=== PATIENT | female | born 1950 | race African-American/Black ===

== ENCOUNTER 2017-06-27 20:35 | Inpatient (IN) | payer MEDICARE, BC ==
[~2017-06-27] VITALS: Ht 160 cm; Wt 45.8 kg
[2017-06-27] MEDS ORDERED: LORazepam Inj 2mg/ml 1ml IV ONE (21:00)
[2017-06-27 21:36] LABS: BASOPHILS % (AUTO) 2.1 % (0.0-2.0); EOSINOPHILS % (AUTO) 5.3 % (0.0-3.0); HEMATOCRIT 37.7 % (37.0-47.0); HEMOGLOBIN 12.2 G/DL (12.0-16.0); LYMPHOCYTES % (AUTO) 43.2 % (20.0-45.0); MEAN CORPUSCULAR VOLUME 94 FL (80-99); MONOCYTES % (AUTO) 9.4 % (1.0-10.0); NEUTROPHILS % (AUTO) 40.1 % (45.0-75.0); PLATELET COUNT 275 K/UL (150-450); RED BLOOD COUNT 4.03 M/UL (4.20-5.40); RED CELL DISTRIBUTION WIDTH 13.4 % (11.6-14.8); WHITE BLOOD COUNT 5.1 K/UL (4.8-10.8)
[2017-06-27 21:56] LABS: ANION GAP 3 mmol/L (5-15); BLOOD UREA NITROGEN 21 mg/dL (7-18); CALCIUM 8.7 MG/DL (8.5-10.1); CARBON DIOXIDE 31 MMOL/L (21-32); CHLORIDE 104 MMOL/L (98-107); CREATININE 0.7 MG/DL (0.55-1.30); POTASSIUM 4.7 MMOL/L (3.5-5.1); SODIUM 138 MMOL/L (136-145)
[2017-06-27 22:01] LABS: ALANINE AMINOTRANSFERASE 10 U/L (12-78); ALBUMIN 2.9 G/DL (3.4-5.0); ALBUMIN/GLOBULIN RATIO 0.8 (1.0-2.7); ALKALINE PHOSPHATASE 111 U/L (46-116); ASPARTATE AMINO TRANSFERASE 18 U/L (15-37); BILIRUBIN,TOTAL 0.2 MG/DL (0.2-1.0); CREATINE KINASE 82 U/L (26-308)
[2017-06-27 22:08] LABS: APPEARANCE,URINE SLIGHTLY CLOUDY; BILIRUBIN, URINE NEGATIVE (NEGATIVE); COLOR,URINE PALE YELLOW; GLUCOSE, URINE (UA) NEGATIVE (NEGATIVE); KETONES,URINE NEGATIVE (NEGATIVE); LEUKOCYTE ESTERASE ,URINE 3+ (NEGATIVE); NITRITE,URINE NEGATIVE (NEGATIVE); PH,URINE 6.5 (4.5-8.0); PROTEIN,URINE 1+ (NEGATIVE); UROBILINOGEN,URINE NORMAL MG/DL (0.0-1.0)
[2017-06-27] MEDS ORDERED: SINEMET 25-1001 EAC1 ORAL (22:26)
[2017-06-27 22:30] VITALS: BP 89/54
--- NOTE | 2017-06-27 23:46 | Emergency Room Report ---
History of Present Illness General Chief Complaint: Chest Pain Source: Patient, EMS Present Illness HPI Patient presents with chest pain. Has been for 4 hours. She has uncontrolled tremors of her arms. They have been jerking violently for several hours. There was a recent change in her medications. She reports the pain in her chest as sternal and to the left. She does not ambulate, so not exertional ( though arms have been celso). More in chest wall and radiating to side on L. No fevers, URI, cough, dyspnea, NVD, diaphoresis, headache, LOC, abdominal pain , change in bowels, dysuria. The nature of the jerking has not been diagnosed. Allergies: Coded Allergies: No Known Allergies (Unverified , 06/27/17) Patient History Past Medical History: see triage record Past Surgical History: other - back surgery Social History: Denies: smoking Social History Narrative SNF Last Menstrual Period: NA Reviewed Nursing Documentation: PMH: Agreed, PSxH: Agreed Nursing Documentation-PMH Hx Hypertension: Yes Hx Asthma: Yes Review of Systems All Other Systems: negative except mentioned in HPI Physical Exam Vital Signs Date Time Temp Pulse Resp B/P (MAP) Pulse Ox O2 Delivery O2 Flow Rate FiO2 06/27/17 20:35 97.5 85 18 146/81 98 Room Air Sp02 EP Interpretation: reviewed, normal General Appearance: no apparent distress, GCS 15, other - arms jerking violently, Chronically Ill Head: normocephalic Eyes: bilateral eye normal inspection, bilateral eye PERRL ENT: moist mucus membranes Neck: supple Respiratory: lungs clear, normal breath sounds Cardiovascular #1: regular rate, rhythm Cardiovascular #2: 2+ radial (R) Gastrointestinal: normal inspection, normal bowel sounds, non tender, no mass, non-distended Musculoskeletal: back normal, normal range of motion 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, oriented x3, motor strength/tone normal - with cheoform jerking of arms, DTRs symmetric, sensory intact, speech normal Psychiatric: mood/affect normal Skin: normal inspection, warm/dry Medical Decision Making Diagnostic Impression: Primary Impression: Chest pain Qualified Codes: R07.9 - Chest pain, unspecified Additional Impressions: Violent uncontrolled choreoform tremors Pyuria ER Course Patient presents with chest pain and uncontrolled arm jerking. Ddx: chorea, Parkinson's, ACS, AMI, chest strain, rhabdomyolysis amongst others. Patient will be evaluated with EKG, CXR and labs. Focus on control of jerking. Non- focality of neurologic exam precludes need for CT at this time. Initial EKG with tremor. Ativan given and second EKG taken. CXR clear. Labs with normal CBC and CMP. UA late return with pyuria. Due to possibly having underlying coronary artery disease the patient admitted for observation and repeat troponins. In addition to that evaluation and treatment of the uncontrolled tremors will be undertaken. Laboratory Tests Test 06/27/17 21:15 06/27/17 21:45 White Blood Count 5.1 K/UL (4.8-10.8) Red Blood Count 4.03 M/UL (4.20-5.40) L Hemoglobin 12.2 G/DL (12.0-16.0) Hematocrit 37.7 % (37.0-47.0) Mean Corpuscular Volume 94 FL (80-99) Mean Corpuscular Hemoglobin 30.3 PG (27.0-31.0) Mean Corpuscular Hemoglobin Concent 32.4 G/DL (32.0-36.0) Red Cell Distribution Width 13.4 % (11.6-14.8) Platelet Count 275 K/UL (150-450) Mean Platelet Volume 6.5 FL (6.5-10.1) Neutrophils (%) (Auto) 40.1 % (45.0-75.0) L Lymphocytes (%) (Auto) 43.2 % (20.0-45.0) Monocytes (%) (Auto) 9.4 % (1.0-10.0) Eosinophils (%) (Auto) 5.3 % (0.0-3.0) H Basophils (%) (Auto) 2.1 % (0.0-2.0) H Prothrombin Time 10.9 SEC (9.30-11.50) Prothrombin Time INR 1.0 (0.9-1.1) PTT 21 SEC (23-33) L Sodium Level 138 MMOL/L (136-145) Potassium Level 4.7 MMOL/L (3.5-5.1) Chloride Level 104 MMOL/L (98-107) Carbon Dioxide Level 31 MMOL/L (21-32) Anion Gap 3 mmol/L (5-15) L Blood Urea Nitrogen 21 mg/dL (7-18) H Creatinine 0.7 MG/DL (0.55-1.30) Estimate Glomerular Filtration Rate > 60 mL/min (>60) Glucose Level 100 MG/DL (74-106) Calcium Level 8.7 MG/DL (8.5-10.1) Total Bilirubin 0.2 MG/DL (0.2-1.0) Aspartate Amino Transferase (AST) 18 U/L (15-37) Alanine Aminotransferase (ALT) 10 U/L (12-78) L Alkaline Phosphatase 111 U/L (46-116) Total Creatine Kinase 82 U/L (26-308) Troponin I 0.000 ng/mL (0.000-0.056) Pro-B-Type Natriuretic Peptide 219 pg/mL (0-125) H Total Protein 6.7 G/DL (6.4-8.2) Albumin 2.9 G/DL (3.4-5.0) L Globulin 3.8 g/dL Albumin/Globulin Ratio 0.8 (1.0-2.7) L Urine Color Pale yellow Urine Appearance Slightly cloudy Urine pH 6.5 (4.5-8.0) Urine Specific [place] 1.015 (1.005-1.035) Urine Protein 1+ (NEGATIVE) H Urine Glucose (UA) Negative (NEGATIVE) Urine Ketones Negative (NEGATIVE) Urine Occult Blood 1+ (NEGATIVE) H Urine Nitrite Negative (NEGATIVE) Urine Bilirubin Negative (NEGATIVE) Urine Urobilinogen Normal MG/DL (0.0-1.0) Urine Leukocyte Esterase 3+ (NEGATIVE) H Urine RBC 2-4 /HPF (0 - 2) H Urine WBC 5-10 /HPF (0 - 2) H Urine Squamous Epithelial Cells Few /LPF (NONE/OCC) Urine Bacteria Few /HPF (NONE) EKG Diagnostic Results Rate: normal Rhythm: NSR ST Segments: no acute changes - LAE Rhythm Strip Diag. Results EP Interpretation: yes Rhythm: NSR, no PVC's, no ectopy Chest X-Ray Diagnostic Results Chest X-Ray Diagnostic Results : Chest X-Ray Ordered: Yes # of Views/Limited/Complete: 1 View Indication: Chest Pain EP Interpretation: Yes Interpretation: no consolidation, no effusion, no pneumothorax, other - Cardiomegaly Impression: No acute disease Last Vital Signs Date Time Temp Pulse Resp B/P (MAP) Pulse Ox O2 Delivery O2 Flow Rate FiO2 06/28/17 01:45 98.7 118 18 107/67 98 Room Air Status: improved Disposition: ADMITTED INPATIENT Condition: Serious Referrals: Robin Chow MD (PCP) Cody Roy M.D. Jun 27, 2017 23:45
[2017-06-28] VITALS (7 sets, daily range): BP systolic 91–120; BP diastolic 57–79
[2017-06-28] MEDS ORDERED: dilTIAZem HCl 25mg/5ml Inj IV PRN (00:15)
[2017-06-28] MEDS ORDERED: Enalaprilat 2.5mg/2ml Inj IV PRN (00:15)
[2017-06-28] MEDS ORDERED: Nitroglycerin Subl 0.4mg tab SL PRN (00:15)
[2017-06-28] MEDS ORDERED: Miralax 17gm pkt ORAL PRN (00:15)
[2017-06-28] MEDS ORDERED: Albuterol/Ipratropium 3ml neb HHN PRN (00:15)
[2017-06-28] MEDS ORDERED: Ketorolac 30mg Inj IV PRN (00:15)
[2017-06-28] MEDS ORDERED: Morphine Sulfate 2mg/ml Inj IVP PRN (00:15)
[2017-06-28] MEDS ORDERED: COLACE100 MG ORAL (01:00)
[2017-06-28] MEDS ORDERED: ATROVENT HFA12.9 GM IH (01:00)
[2017-06-28] MEDS ORDERED: PRIMIDONE50 MG PO ×2 (01:00→01:04)
[2017-06-28] MEDS ORDERED: MILK OF MA400 MG/51 ORAL (01:00)
[2017-06-28] MEDS ORDERED: MULTIVITAMINS1 EA14 PO (01:00)
[2017-06-28] MEDS ORDERED: BOOST PLUS237 ML PO (01:00)
[2017-06-28] MEDS ORDERED: DUONEB 0.5-3(2.53 ML HHN (01:00)
[2017-06-28] MEDS ORDERED: FLEET ENEMA133 ML RECTAL (01:00)
[2017-06-28] MEDS ORDERED: DULCOLAX10 MG RC (01:00)
[2017-06-28] MEDS ORDERED: ATIVAN0.5 MG ORAL (01:00)
[2017-06-28] MEDS ORDERED: TYLENOL650 MG/20. ORAL (01:00)
[2017-06-28] MEDS ORDERED: MAGNESIUM OXID500 M2 PO (01:00)
[2017-06-28] MEDS ORDERED: ZINC SULFATE220 M1 ORAL (01:04)
[2017-06-28] MEDS ORDERED: VITAMIN D-32000 UNI1 PO (01:04)
[2017-06-28] MEDS ORDERED: VICKS VAPORUB O50 GM TP (01:04)
[2017-06-28] MEDS ORDERED: PROPRANOLOL HCL20 MG ORAL (01:04)
[2017-06-28] MEDS ORDERED: VITAMIN C500 M1 ORAL (01:04)
[2017-06-28] MEDS ORDERED: TRAMADOL HCL50 MG ORAL (01:04)
[2017-06-28] MEDS ORDERED: TESSALON PERLE100 MG ORAL (01:04)
[2017-06-28] MEDS ORDERED: LORazepam Inj 2mg/ml 1ml IV ONE (01:15)
[2017-06-28] MEDS: Levodopa/Carbidopa 25/100 tab ORAL SCH ×3 (09:10→17:55)
[2017-06-28] MEDS: Heparin 5000 units/ml inj SUBQ SCH ×2 (09:12→21:07)
[2017-06-28] MEDS: Aspirin Baby 81mg ORAL SCH (09:12)
--- NOTE | 2017-06-28 10:12 | Diagnostic Imaging Report ---
Indication: Dyspnea Technique: XRAY Chest 1v Comparison: None Findings: Rotated to the right. Patient's chin obscures portions of the lung apices. Heart appears borderline enlarged. Mediastinal contours are sharp. There is no definite focal airspace consolidation, pleural effusion or pneumothorax. Impression: Technically limited exam as above. No definite radiographic evidence of acute cardiopulmonary disease. Borderline cardiomegaly.
[2017-06-28] MEDS ORDERED: LORazepam 0.5mg tab ORAL SCH (13:15)
[2017-06-28] MEDS ORDERED: Cyclobenzaprine 10mg Tab ORAL SCH (15:30)
--- NOTE | 2017-06-28 15:35 | Neurology Progress Note ---
Objective Physical Exam Last Vital Signs Date Time Temp Pulse Resp B/P (MAP) Pulse Ox O2 Delivery O2 Flow Rate FiO2 06/28/17 12:00 75 06/28/17 12:00 98.1 20 116/79 96 Room Air Laboratory Tests Test 06/27/17 21:15 06/27/17 21:45 White Blood Count 5.1 K/UL (4.8-10.8) Red Blood Count 4.03 M/UL (4.20-5.40) L Hemoglobin 12.2 G/DL (12.0-16.0) Hematocrit 37.7 % (37.0-47.0) Mean Corpuscular Volume 94 FL (80-99) Mean Corpuscular Hemoglobin 30.3 PG (27.0-31.0) Mean Corpuscular Hemoglobin Concent 32.4 G/DL (32.0-36.0) Red Cell Distribution Width 13.4 % (11.6-14.8) Platelet Count 275 K/UL (150-450) Mean Platelet Volume 6.5 FL (6.5-10.1) Neutrophils (%) (Auto) 40.1 % (45.0-75.0) L Lymphocytes (%) (Auto) 43.2 % (20.0-45.0) Monocytes (%) (Auto) 9.4 % (1.0-10.0) Eosinophils (%) (Auto) 5.3 % (0.0-3.0) H Basophils (%) (Auto) 2.1 % (0.0-2.0) H Prothrombin Time 10.9 SEC (9.30-11.50) Prothromb Time International Ratio 1.0 (0.9-1.1) Activated Partial Thromboplast Time 21 SEC (23-33) L Sodium Level 138 MMOL/L (136-145) Potassium Level 4.7 MMOL/L (3.5-5.1) Chloride Level 104 MMOL/L (98-107) Carbon Dioxide Level 31 MMOL/L (21-32) Anion Gap 3 mmol/L (5-15) L Blood Urea Nitrogen 21 mg/dL (7-18) H Creatinine 0.7 MG/DL (0.55-1.30) Estimat Glomerular Filtration Rate > 60 mL/min (>60) Glucose Level 100 MG/DL (74-106) Calcium Level 8.7 MG/DL (8.5-10.1) Total Bilirubin 0.2 MG/DL (0.2-1.0) Aspartate Amino Transf (AST/SGOT) 18 U/L (15-37) Alanine Aminotransferase (ALT/SGPT) 10 U/L (12-78) L Alkaline Phosphatase 111 U/L (46-116) Total Creatine Kinase 82 U/L (26-308) Troponin I 0.000 ng/mL (0.000-0.056) Pro-B-Type Natriuretic Peptide 219 pg/mL (0-125) H Total Protein 6.7 G/DL (6.4-8.2) Albumin 2.9 G/DL (3.4-5.0) L Globulin 3.8 g/dL Albumin/Globulin Ratio 0.8 (1.0-2.7) L Urine Color Pale yellow Urine Appearance Slightly cloudy Urine pH 6.5 (4.5-8.0) Urine Specific [place] 1.015 (1.005-1.035) Urine Protein 1+ (NEGATIVE) H Urine Glucose (UA) Negative (NEGATIVE) Urine Ketones Negative (NEGATIVE) Urine Occult Blood 1+ (NEGATIVE) H Urine Nitrite Negative (NEGATIVE) Urine Bilirubin Negative (NEGATIVE) Urine Urobilinogen Normal MG/DL (0.0-1.0) Urine Leukocyte Esterase 3+ (NEGATIVE) H Urine RBC 2-4 /HPF (0 - 2) H Urine WBC 5-10 /HPF (0 - 2) H Urine Squamous Epithelial Cells Few /LPF (NONE/OCC) Urine Bacteria Few /HPF (NONE) Impression/Recommendations Problems: (1) Atypical Parkinson syndrom, advanced Status: unchanged Recommendations #[id number] ROBERT FRITZ Jun 28, 2017 15:35
[2017-06-28] MEDS: Cyclobenzaprine 10mg Tab ORAL SCH ×2 (15:38→17:56)
--- NOTE | 2017-06-28 16:44 | Consultation ---
History of Present Illness General Date patient seen: Jun 28, 2017 Chief Complaint: Chest Pain Reason for Consultation: chest pain Present Illness HPI 67 year old female with hx of ? parkinson? presents with chest pain for 4 hours. She has uncontrolled tremors of her arms. They have been jerking violently for several hours. There was a recent change in her medications. She reports the pain in her chest as sternal and to the left. She claims that the shaking has caused the chest pain. She is admitted to telemetry for further evaluation. Allergies: Coded Allergies: No Known Allergies (Unverified , 06/27/17) Medication History Scheduled Ascorbic Acid* (Vitamin C*), 500 MG ORAL DAILY, (Reported) Benzonatate* (Tessalon Perle*), 100 MG ORAL THREE TIMES A DAY, (Reported) Carbidopa/Levodopa 25-100 Mg* (Sinemet 25-100 Mg Tablet*), 0.5 TAB ORAL THREE TIMES A DAY, (Reported) Cholecalciferol (Vitamin D3) (Vitamin D-3), 2,000 UNIT PO DAILY, (Reported) Eucalyptus Oil/Menthol/Camphor (Vicks Vaporub Ointment), 50 GM TP QID, (Reported ) Ipratropium [place] (Atrovent Hfa), 12.9 GM IH Q6HR, (Reported) Ipratropium/Albuterol Sulfate (DuoNeb 0.5-3(2.5)mg/3ml), 3 ML HHN Q8HR, ( Reported) Lorazepam* (Ativan*), 0.5 MG ORAL THREE TIMES A DAY, (Reported) Magnesium Oxide (Magnesium Oxide), 400 MG PO BEDTIME, (Reported) Multivitamin (Multivitamins), 1 EACH PO BEDTIME, (Reported) Na Phos,M-B/Na Phos,Di-Ba* (Fleet Enema*), 133 ML RECTAL DAILY, (Reported) Primidone* (Mysoline*), 50 MG PO BEDTIME, (Reported) Primidone* (Mysoline*), 42.5 MG PO DAILY, (Reported) Propranolol Hcl* (Inderal*), 20 MG ORAL THREE TIMES A DAY, (Reported) Zinc Sulfate (Zinc Sulfate*), 220 MG ORAL DAILY, (Reported) Scheduled PRN Acetaminophen (Acetaminophen), 650 MG ORAL Q6H PRN for Prn Headache/Temp > 101, (Reported) Docusate Sodium* (Colace*), 100 MG ORAL TWICE A DAY PRN for Constipation, ( Reported) Ipratropium [place] (Atrovent Hfa), 17 MCG IH Q6HR PRN for Shortness of Breath, (Reported) Lactose-Free Food (Boost Plus), 237 ML PO BID PRN for Constipation, (Reported) Magnesium Hydroxide* (Milk Of Magnesia*), 30 ML ORAL DAILY PRN for Constipation, (Reported) Tramadol Hcl* (Ultram*), 50 MG ORAL Q6H PRN for For Pain, (Reported) Miscellaneous Medications Bisacodyl (Dulcolax), 10 MG RC, (Reported) Patient History Healthcare decision maker Resuscitation status Full Code Advanced Directive on File Past Medical/Surgical History Past Medical/Surgical History: (1) Atypical Parkinson syndrom, advanced Review of Systems Constitutional: Reports: malaise, weakness Neurological: Reports: tremors, syncope Physical Exam General Appearance: WD/WN Lines, tubes and drains: peripheral HEENT: normocephalic, atraumatic Neck: non-tender, supple Respiratory/Chest: chest wall non-tender, lungs clear Breasts: no masses Cardiovascular/Chest: normal rate Abdomen: normal bowel sounds, soft Genitourinary/Rectal: normal genital exam Last 24 Hour Vital Signs Date Time Temp Pulse Resp B/P (MAP) Pulse Ox O2 Delivery O2 Flow Rate FiO2 06/28/17 16:00 97.7 82 20 120/67 97 Room Air 06/28/17 12:00 75 06/28/17 12:00 98.1 79 20 116/79 96 Room Air 06/28/17 08:00 97.0 77 20 108/65 96 Room Air 06/28/17 08:00 72 06/28/17 06:30 84 16 Room Air 06/28/17 04:00 69 06/28/17 04:00 97.9 93 20 106/69 98 Room Air 06/28/17 01:45 98.7 118 18 107/67 98 Room Air 06/28/17 01:42 98.5 70 13 91/57 98 Room Air 06/28/17 00:36 70 13 91/57 98 Room Air 06/27/17 22:30 98.5 70 15 89/54 98 Room Air 06/27/17 20:45 85 18 Room Air 06/27/17 20:35 97.5 85 18 146/81 98 Room Air Intake and Output 06/27/17 06/28/17 19:00 07:00 Output Total 200 ml Balance -200 ml Output Urine Total 200 ml # Voids 3 # Bowel Movements 1 Laboratory Tests Test 06/27/17 21:15 06/27/17 21:45 White Blood Count 5.1 K/UL (4.8-10.8) Red Blood Count 4.03 M/UL (4.20-5.40) L Hemoglobin 12.2 G/DL (12.0-16.0) Hematocrit 37.7 % (37.0-47.0) Mean Corpuscular Volume 94 FL (80-99) Mean Corpuscular Hemoglobin 30.3 PG (27.0-31.0) Mean Corpuscular Hemoglobin Concent 32.4 G/DL (32.0-36.0) Red Cell Distribution Width 13.4 % (11.6-14.8) Platelet Count 275 K/UL (150-450) Mean Platelet Volume 6.5 FL (6.5-10.1) Neutrophils (%) (Auto) 40.1 % (45.0-75.0) L Lymphocytes (%) (Auto) 43.2 % (20.0-45.0) Monocytes (%) (Auto) 9.4 % (1.0-10.0) Eosinophils (%) (Auto) 5.3 % (0.0-3.0) H Basophils (%) (Auto) 2.1 % (0.0-2.0) H Prothrombin Time 10.9 SEC (9.30-11.50) Prothromb Time International Ratio 1.0 (0.9-1.1) Activated Partial Thromboplast Time 21 SEC (23-33) L Sodium Level 138 MMOL/L (136-145) Potassium Level 4.7 MMOL/L (3.5-5.1) Chloride Level 104 MMOL/L (98-107) Carbon Dioxide Level 31 MMOL/L (21-32) Anion Gap 3 mmol/L (5-15) L Blood Urea Nitrogen 21 mg/dL (7-18) H Creatinine 0.7 MG/DL (0.55-1.30) Estimat Glomerular Filtration Rate > 60 mL/min (>60) Glucose Level 100 MG/DL (74-106) Calcium Level 8.7 MG/DL (8.5-10.1) Total Bilirubin 0.2 MG/DL (0.2-1.0) Aspartate Amino Transf (AST/SGOT) 18 U/L (15-37) Alanine Aminotransferase (ALT/SGPT) 10 U/L (12-78) L Alkaline Phosphatase 111 U/L (46-116) Total Creatine Kinase 82 U/L (26-308) Troponin I 0.000 ng/mL (0.000-0.056) Pro-B-Type Natriuretic Peptide 219 pg/mL (0-125) H Total Protein 6.7 G/DL (6.4-8.2) Albumin 2.9 G/DL (3.4-5.0) L Globulin 3.8 g/dL Albumin/Globulin Ratio 0.8 (1.0-2.7) L Urine Color Pale yellow Urine Appearance Slightly cloudy Urine pH 6.5 (4.5-8.0) Urine Specific [place] 1.015 (1.005-1.035) Urine Protein 1+ (NEGATIVE) H Urine Glucose (UA) Negative (NEGATIVE) Urine Ketones Negative (NEGATIVE) Urine Occult Blood 1+ (NEGATIVE) H Urine Nitrite Negative (NEGATIVE) Urine Bilirubin Negative (NEGATIVE) Urine Urobilinogen Normal MG/DL (0.0-1.0) Urine Leukocyte Esterase 3+ (NEGATIVE) H Urine RBC 2-4 /HPF (0 - 2) H Urine WBC 5-10 /HPF (0 - 2) H Urine Squamous Epithelial Cells Few /LPF (NONE/OCC) Urine Bacteria Few /HPF (NONE) Height (Feet): 5 Height (Inches): 3.00 Weight (Pounds): 101 Medications Current Medications Medications (Trade) Dose Ordered Sig/[place] Route PRN Reason Start Time Stop Time Status Last Admin Dose Admin Acetaminophen (Tylenol) 650 mg Q4H PRN ORAL FEVER 06/28/17 00:15 07/28/17 00:14 Albuterol/ Ipratropium (Albuterol/ Ipratropium) 3 ml Q4H PRN HHN Shortness of Breath 06/28/17 00:15 07/03/17 00:14 Aspirin (ASA) 162 mg DAILY ORAL 06/28/17 09:00 07/28/17 08:59 06/28/17 09:12 Carbidopa/Levodopa (Sinemet 25/100) 1 tab THREE TIMES A DAY ORAL 06/28/17 18:00 07/28/17 17:59 Cyclobenzaprine HCl (Flexeril) 10 mg THREE TIMES A DAY ORAL 06/28/17 15:30 07/28/17 15:29 06/28/17 15:38 Diltiazem HCl (Cardizem) 10 mg Q1H PRN IV heart rate more than 120, 06/28/17 00:15 07/28/17 00:14 Enalaprilat (Vasotec) 2.5 mg Q6H PRN IV sbp more than 160 06/28/17 00:15 07/28/17 00:14 Heparin Sodium (Porcine) (Heparin 5000 units/ml) 5,000 units EVERY 12 HOURS SUBQ 06/28/17 09:00 07/28/17 08:59 06/28/17 09:12 Lorazepam (Ativan 2mg/ml 1ml) 1 mg Q12HR IV 06/28/17 21:00 07/05/17 20:59 Morphine Sulfate (Morphine Sulfate) 2 mg Q4H PRN IVP severe Pain (Pain Scale 7-10) 06/28/17 00:15 07/05/17 00:14 Nitroglycerin (Ntg) 0.4 mg Q5M PRN SL Prn Chest Pain 06/28/17 00:15 07/28/17 00:14 Ondansetron HCl (Zofran) 4 mg Q6H PRN IVP Nausea & Vomiting 06/28/17 00:15 07/28/17 00:14 Polyethylene Glycol (Miralax) 17 gm DAILYPRN PRN ORAL Constipation 06/28/17 00:15 07/28/17 00:14 Temazepam (Restoril) 15 mg HSPRN PRN ORAL Insomnia 06/28/17 00:15 07/05/17 00:14 Assessment/Plan Problem List: (1) Atypical Parkinson syndrom, advanced (2) Chest pain ICD Codes: R07.9 - Chest pain, unspecified SNOMED: [id number] Qualifiers: Qualified Codes: R07.9 - Chest pain, unspecified Assessment/Plan serial ekg, troponin, echo cardiology to see neuro evaluation symptomatic treatment. pt/ot LUKE MARTE Jun 28, 2017 16:44
--- NOTE | 2017-06-28 17:20 | History & Physical ---
History and Physical History & Physicial Dictated for Int Med-Dr Chow no. [id number]. MINE SPIVEY Jun 28, 2017 17:20
--- NOTE | 2017-06-28 18:35 | Cardiology Progress Note ---
Assessment/Plan Assessment/Plan cp atypical tender to palp cannot fine any cardiac saenz at [facility] despite supposed arrest and torp up to 2 will repeat trop here and ekg both of which so far neg echo prelim neg chest wall appear to be tender to palp if trop normal will not prusuit furthe duplex and sternal and rib series [facility] summary : 1.~~~Acute hypercapnic respiratory failure, status post intubation and extubation. 2.~~~Severe respiratory acidosis. 3.~~~Altered mental status due to toxic metabolic encephalopathy as a result of the hypoxemia. 4.~Pulseless electrical activity arrest with cardiopulmonary arrest. 5.~~~Acute influenza A infection with upper respiratory infection. 6.~~~Essential tremor. 7.~~~Hyperkalemia. 8.~~~Anxiety. Objective Last 24 Hour Vital Signs Date Time Temp Pulse Resp B/P (MAP) Pulse Ox O2 Delivery O2 Flow Rate FiO2 06/28/17 16:00 87 06/28/17 16:00 97.7 82 20 120/67 97 Room Air 06/28/17 12:00 75 06/28/17 12:00 98.1 79 20 116/79 96 Room Air 06/28/17 08:00 97.0 77 20 108/65 96 Room Air 06/28/17 08:00 72 06/28/17 06:30 84 16 Room Air 06/28/17 04:00 69 06/28/17 04:00 97.9 93 20 106/69 98 Room Air 06/28/17 01:45 98.7 118 18 107/67 98 Room Air 06/28/17 01:42 98.5 70 13 91/57 98 Room Air 06/28/17 00:36 70 13 91/57 98 Room Air 06/27/17 22:30 98.5 70 15 89/54 98 Room Air 06/27/17 20:45 85 18 Room Air 06/27/17 20:35 97.5 85 18 146/81 98 Room Air Intake and Output 06/27/17 06/28/17 19:00 07:00 Output Total 200 ml Balance -200 ml Output Urine Total 200 ml # Voids 3 # Bowel Movements 1 Laboratory Tests Test 06/27/17 21:15 06/27/17 21:45 White Blood Count 5.1 K/UL (4.8-10.8) Red Blood Count 4.03 M/UL (4.20-5.40) L Hemoglobin 12.2 G/DL (12.0-16.0) Hematocrit 37.7 % (37.0-47.0) Mean Corpuscular Volume 94 FL (80-99) Mean Corpuscular Hemoglobin 30.3 PG (27.0-31.0) Mean Corpuscular Hemoglobin Concent 32.4 G/DL (32.0-36.0) Red Cell Distribution Width 13.4 % (11.6-14.8) Platelet Count 275 K/UL (150-450) Mean Platelet Volume 6.5 FL (6.5-10.1) Neutrophils (%) (Auto) 40.1 % (45.0-75.0) L Lymphocytes (%) (Auto) 43.2 % (20.0-45.0) Monocytes (%) (Auto) 9.4 % (1.0-10.0) Eosinophils (%) (Auto) 5.3 % (0.0-3.0) H Basophils (%) (Auto) 2.1 % (0.0-2.0) H Prothrombin Time 10.9 SEC (9.30-11.50) Prothromb Time International Ratio 1.0 (0.9-1.1) Activated Partial Thromboplast Time 21 SEC (23-33) L Sodium Level 138 MMOL/L (136-145) Potassium Level 4.7 MMOL/L (3.5-5.1) Chloride Level 104 MMOL/L (98-107) Carbon Dioxide Level 31 MMOL/L (21-32) Anion Gap 3 mmol/L (5-15) L Blood Urea Nitrogen 21 mg/dL (7-18) H Creatinine 0.7 MG/DL (0.55-1.30) Estimat Glomerular Filtration Rate > 60 mL/min (>60) Glucose Level 100 MG/DL (74-106) Calcium Level 8.7 MG/DL (8.5-10.1) Total Bilirubin 0.2 MG/DL (0.2-1.0) Aspartate Amino Transf (AST/SGOT) 18 U/L (15-37) Alanine Aminotransferase (ALT/SGPT) 10 U/L (12-78) L Alkaline Phosphatase 111 U/L (46-116) Total Creatine Kinase 82 U/L (26-308) Troponin I 0.000 ng/mL (0.000-0.056) Pro-B-Type Natriuretic Peptide 219 pg/mL (0-125) H Total Protein 6.7 G/DL (6.4-8.2) Albumin 2.9 G/DL (3.4-5.0) L Globulin 3.8 g/dL Albumin/Globulin Ratio 0.8 (1.0-2.7) L Urine Color Pale yellow Urine Appearance Slightly cloudy Urine pH 6.5 (4.5-8.0) Urine Specific [place] 1.015 (1.005-1.035) Urine Protein 1+ (NEGATIVE) H Urine Glucose (UA) Negative (NEGATIVE) Urine Ketones Negative (NEGATIVE) Urine Occult Blood 1+ (NEGATIVE) H Urine Nitrite Negative (NEGATIVE) Urine Bilirubin Negative (NEGATIVE) Urine Urobilinogen Normal MG/DL (0.0-1.0) Urine Leukocyte Esterase 3+ (NEGATIVE) H Urine RBC 2-4 /HPF (0 - 2) H Urine WBC 5-10 /HPF (0 - 2) H Urine Squamous Epithelial Cells Few /LPF (NONE/OCC) Urine Bacteria Few /HPF (NONE) NELA KAUFMAN Jun 28, 2017 18:35
[2017-06-28] MEDS: LORazepam Inj 2mg/ml 1ml IV SCH (21:05)
[2017-06-29] VITALS: BP 146/87
[2017-06-29 04:00] VITALS: BP 137/74
[2017-06-29 07:30] LABS: BASOPHILS % (AUTO) 1.7 % (0.0-2.0); EOSINOPHILS % (AUTO) 6.2 % (0.0-3.0); HEMATOCRIT 33.5 % (37.0-47.0); LYMPHOCYTES % (AUTO) 43.8 % (20.0-45.0); MEAN CORPUSCULAR VOLUME 94 FL (80-99); MONOCYTES % (AUTO) 10.4 % (1.0-10.0); NEUTROPHILS % (AUTO) 37.9 % (45.0-75.0); PLATELET COUNT 233 K/UL (150-450); RED BLOOD COUNT 3.57 M/UL (4.20-5.40); RED CELL DISTRIBUTION WIDTH 13.1 % (11.6-14.8); WHITE BLOOD COUNT 4.1 K/UL (4.8-10.8)
[2017-06-29 07:41] LABS: ANION GAP 3 mmol/L (5-15); BLOOD UREA NITROGEN 19 mg/dL (7-18); CALCIUM 8.3 MG/DL (8.5-10.1); CARBON DIOXIDE 32 MMOL/L (21-32); CHLORIDE 103 MMOL/L (98-107); CREATININE 0.8 MG/DL (0.55-1.30); POTASSIUM 4.1 MMOL/L (3.5-5.1); SODIUM 138 MMOL/L (136-145)
[2017-06-29 07:53] LABS: INR 1.1 (0.9-1.1)
[2017-06-29 08:00] VITALS: BP 99/64
[2017-06-29 08:27] LABS: CHOLESTEROL 147 MG/DL (< 200); HDL CHOLESTEROL 89 MG/DL (40-60); TRIGLYCERIDES 45 MG/DL (30-150)
[2017-06-29] MEDS: Aspirin Baby 81mg ORAL SCH (09:42)
[2017-06-29] MEDS: Levodopa/Carbidopa 25/100 tab ORAL SCH ×3 (09:42→17:35)
[2017-06-29] MEDS: LORazepam Inj 2mg/ml 1ml IV SCH ×2 (09:43→22:00)
[2017-06-29] MEDS: Cyclobenzaprine 10mg Tab ORAL SCH ×3 (09:43→17:35)
[2017-06-29] MEDS: Heparin 5000 units/ml inj SUBQ SCH ×2 (09:45→22:00)
--- NOTE | 2017-06-29 10:18 | Neurology Progress Note ---
Interim History Interim History ROS Limited/Unobtainable: No Complaints: tremorr BUE/inability to ambulate Events: feel better Objective Physical Exam Last Vital Signs Date Time Temp Pulse Resp B/P (MAP) Pulse Ox O2 Delivery O2 Flow Rate FiO2 06/29/17 08:17 82 18 Room Air 06/29/17 08:00 97.9 99/64 96 Laboratory Tests Test 06/29/17 06:05 White Blood Count 4.1 K/UL (4.8-10.8) L Red Blood Count 3.57 M/UL (4.20-5.40) L Hemoglobin 11.0 G/DL (12.0-16.0) L Hematocrit 33.5 % (37.0-47.0) L Mean Corpuscular Volume 94 FL (80-99) Mean Corpuscular Hemoglobin 30.9 PG (27.0-31.0) Mean Corpuscular Hemoglobin Concent 33.0 G/DL (32.0-36.0) Red Cell Distribution Width 13.1 % (11.6-14.8) Platelet Count 233 K/UL (150-450) Mean Platelet Volume 6.9 FL (6.5-10.1) Neutrophils (%) (Auto) 37.9 % (45.0-75.0) L Lymphocytes (%) (Auto) 43.8 % (20.0-45.0) Monocytes (%) (Auto) 10.4 % (1.0-10.0) H Eosinophils (%) (Auto) 6.2 % (0.0-3.0) H Basophils (%) (Auto) 1.7 % (0.0-2.0) Prothrombin Time 11.2 SEC (9.30-11.50) Prothromb Time International Ratio 1.1 (0.9-1.1) Activated Partial Thromboplast Time 27 SEC (23-33) Sodium Level 138 MMOL/L (136-145) Potassium Level 4.1 MMOL/L (3.5-5.1) Chloride Level 103 MMOL/L (98-107) Carbon Dioxide Level 32 MMOL/L (21-32) Anion Gap 3 mmol/L (5-15) L Blood Urea Nitrogen 19 mg/dL (7-18) H Creatinine 0.8 MG/DL (0.55-1.30) Estimat Glomerular Filtration Rate > 60 mL/min (>60) Glucose Level 83 MG/DL (74-106) Calcium Level 8.3 MG/DL (8.5-10.1) L Troponin I 0.011 ng/mL (0.000-0.056) C-Reactive Protein, Quantitative < 0.4 mg/dL (0.00-0.90) Triglycerides Level 45 MG/DL (30-150) Cholesterol Level 147 MG/DL (< 200) LDL Cholesterol 58 mg/dL (<100) HDL Cholesterol 89 MG/DL (40-60) H Cholesterol/HDL Ratio 1.7 (3.3-4.4) L Thyroid Stimulating Hormone (TSH) 1.291 uiU/mL (0.358-3.740) General: other - cachectic Head: normocophalic, atraumatic Neck: other - rgrid Neurologic Exam Mental Status: awake, alert, oriented x4, normal cognition, good mathematical skills, normal recent memory, normal remote memory, preserved visuospatial function Speech: normal speech, no dysarthia Language: normal language, no aphasia Cranial Nerve II: fundus normal, visual watson, no papilledema Cranial Nerves III, IV, : PERRLA, EOMI, pupils Cranial Nerve V: normal facial sensations, temporales function normal, masseters function normal, pterygoids function normal Cranial Nerve VII: no facial asymmetry, normal facial expressions Cranial Nerve VIII: normal hearing, no nystagmus Cranial Nerve IX: normal palate elevation, gag response Cranial Nerve X: no voice hoarseness Cranial Nerve XI: SCM symmetric, trapezii function normal Cranial Nerve XII: tongue midline, no tongue atrophy/fasciculations Motor System: other - generalised rigidity, resting hand tremor Sensory: normal pinprick Coordination: other - clumsy Deep Tendon Reflexes: 1+ bicep (L), 1+ bicep (R), 1+ tricep (L), 1+ tricep (R) , 1+ brachioradialis (L), 1+ brachioradialis (R), 1+ knee (L), 1+ knee (R), 1+ ankle (L), 1+ ankle (R) Reflexes: mute plantar (L), mute plantar (R) Impression/Recommendations Problems: (1) Atypical Parkinson syndrom, advanced Status: doing well, unchanged Recommendations #[id number] cont present tx neuro stable f/u rehab f/u OP neuro ROBERT FRITZ Jun 29, 2017 10:18
[2017-06-29 12:00] VITALS: BP 93/56
--- NOTE | 2017-06-29 12:55 | Consultation ---
DATE OF CONSULTATION: 06/28/2017 NEUROLOGICAL CONSULTATION CONSULTING PHYSICIAN: Morales Guido M.D. REFERRING PHYSICIAN: Robin Chow M.D. HISTORY OF PRESENT ILLNESS: This is a 67-year-old female, seen in neurological consultation to evaluate intractable tremor. She was brought to this hospital. She developed chest pain for at least several hours. She had shortness of breath, chest pain at the sternal region and to the left side. Her vital signs were stable. She was afebrile. Her EKG has normal sinus rhythm. No PVCs. Chest x-ray, no acute disease noted. Initial lab work included normal CBC study, coagulation panel, urinalysis 5 to 10 WBCs, and chemistry panel with a BNP of 219, albumin 2.9, BUN of 21, normal troponin. Chest x-ray, borderline cardiomegaly, no acute cardiopulmonary disease. Following admission, she continued to have severe shaking, not responding to Ativan p.o., but when given IV 0.5 mg, she had significant improvement in tremor lasting few hours. At this time, the patient is asking to restart on IV Ativan. Current treatment list included aspirin, Tylenol as needed, but also Cardizem, albuterol, Vasotec, subcutaneous heparin, Toradol for pain, Sinemet 0.5 tablets t.i.d., morphine p.r.n., Zofran p.r.n., and Restoril. The patient indicated that approximately a year and half ago, she started to develop mild hand tremor, which reportedly was assessed as essential tremor. The patient has been seen by neurologist, Dr. Oswald Cole, started on primidone, adding later Ativan. The patient indicated that in spite of treatment, there was no improvement and as a matter of fact, she continued to have increasing shaking still. A couple of months ago, she was able to go out on a cruise, come back home, and ambulatory. She was sent in to rehabilitation facility, but months ago, during hospitalization, she developed significant gait abnormality, became nonambulatory. The patient claims that this occurred because she would stay in bed full day long, interrupted only for half an hour on physical therapy. The patient's diagnostic studies included MRI of the brain, which was reported as unremarkable. She had a DaTscan, which was positive apparently for parkinsonian features and only 3 days ago, she was started on Sinemet 25/100 half a tablet t.i.d., which so far was tolerated well. PAST MEDICAL HISTORY: Bronchial asthma, hypertension, she had a low back surgery. TREATMENT PRIOR TO ADMISSION: Sinemet, but also vitamin D, Atrovent, lorazepam, primidone, propranolol, tramadol, and zinc. ALLERGIES: None reported. SOCIAL HISTORY: The patient is single. 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 No alcohol. No drug abuse. Nonsmoker. FAMILY HISTORY: Noncontributory. REVIEW OF SYMPTOMS: "Traumatized" by continuous severe shaking of both upper extremities, inability to ambulate, transient chest pain, and shortness of breath, but no abdominal pain discomfort. No urine or bowel incontinence. No memory issues. PHYSICAL EXAMINATION: GENERAL: A well-developed, cachectic appearing female, mild distress. She has continued to have action and resting pill-rolling tremor of both upper extremities. MUSCULOSKELETAL: Examination remarkable for what seems Dupuytren contracture of right second, third, fourth, and fifth fingers previously operated. There is a flexion contracture of these three fingers and there is some tendency for both wrist flexion contracture. Peripheral pulses 1+ and symmetric. MENTAL STATUS: She is fully alert and oriented x3 with no evidence of aphasia or apraxia. Cognitive function normal. The patient is very concerned, very distraught with progressive tremors and inability to ambulate. CRANIAL NERVE II: Pupils both responding to light and accommodation. Extraocular movements intact. No nystagmus. CRANIAL NERVE V: Normal corneal responses. CRANIAL NERVE VII: No facial asymmetry. CRANIAL NERVE VIII: Grossly normal hearing. CRANIAL NERVES IX THROUGH XII: Tongue is in midline. Symmetric palate elevation. MOTOR EXAMINATION: Resting high amplitude tremor in both upper extremities. Significant rigidity in both upper extremities. Tendency for flexion contracture, right wrist and lesser degree, left wrist. Strength appears 5/5 in both upper and lower extremities. Increased muscle tone and rigidity in both lower extremities. Slight scissoring of both legs. Deep tendon reflexes are brisk, 3+ bilaterally. Plantar response is mute. No pathological responses noted. Sensory exam normal to pinprick and light touch. The patient was assisted to sit up, but this required full efforts. She was not able to get up on her feet. IMPRESSION: 1. Atypical parkinsonian syndrome, advanced. 2. Anxiety. 3. Bronchial asthma. 4. Malnutrition. RECOMMENDATION: The patient had full workup as outpatient at [facility]. She will continue her care with neurologist at [facility]. Meanwhile, we will adjust her treatment, increase Sinemet 25/100 one tablet t.i.d. Apparently, she is able to tolerate well the previous dose. Ativan 1 mg IV q.12 h. to reduce temporarily severe shaking. Trial of Flexeril 10 mg t.i.d. The patient to be off primidone. Further treatment with antianxiety and antidepressants may be advantageous. Thank you for allowing me to see this interesting patient in neurological consultation. Morales Guido M.D. DR: LACIE JOB#: [id number] CC:
--- NOTE | 2017-06-29 14:17 | Diagnostic Imaging Report ---
Indication: Trauma. Comparison: None Findings: 4 views of the chest wall obtained bilaterally for evaluation of the ribs. No definite acute fracture is identified. The bones are osteopenic. There is no pneumothorax. IMPRESSION: No acute fracture appreciated. Generalized osteopenia
--- NOTE | 2017-06-29 14:17 | Diagnostic Imaging Report ---
Indication: Chest pain Comparison: None Findings: Two-view sternum obtained. There is a questionable fracture of the mid and lower sternum. Further evaluation with CT is suggested as warranted clinically. Bones are osteopenic. IMPRESSION: Questionable fracture of the sternum. Views are limited. Suggest CT for further evaluation
[2017-06-29 16:00] VITALS: BP_SYST 76; BP_SYST 92; BP_DIAS 46; BP_DIAS 55
--- NOTE | 2017-06-29 16:43 | Cardiology Progress Note ---
Assessment/Plan Assessment/Plan cp atypical tender to palp sternal fx ? parkinsonism all trop neg xray ? sternal fx need ct to confirm if still staying here cannot find any cardiac saenz at [facility] despite supposed arrest and torp up to 2 ekg neg trop neg duplex neg echo prelim neg chest wall appear to be tender to palp c/w fracture of sternum will d/w dr diogenes watts dc summary : 1.~~~Acute hypercapnic respiratory failure, status post intubation and extubation. 2.~~~Severe respiratory acidosis. 3.~~~Altered mental status due to toxic metabolic encephalopathy as a result of the hypoxemia. 4.~Pulseless electrical activity arrest with cardiopulmonary arrest. 5.~~~Acute influenza A infection with upper respiratory infection. 6.~~~Essential tremor. 7.~~~Hyperkalemia. 8.~~~Anxiety. Subjective Cardiovascular: Denies: chest pain, irregular heart rate, lightheadedness Respiratory: Denies: shortness of breath Gastrointestinal/Abdominal: Denies: abdominal pain Genitourinary: Denies: burning Objective Last 24 Hour Vital Signs Date Time Temp Pulse Resp B/P (MAP) Pulse Ox O2 Delivery O2 Flow Rate FiO2 06/29/17 16:00 98.2 88 19 92/55 97 Room Air 06/29/17 14:26 97.6 06/29/17 12:00 76 06/29/17 12:00 97.6 76 20 93/56 98 Room Air 06/29/17 08:17 82 18 Room Air 06/29/17 08:00 78 06/29/17 08:00 97.9 75 20 99/64 96 Room Air 06/29/17 04:00 97.0 60 22 137/74 96 Room Air 06/29/17 04:00 79 06/29/17 00:00 98.7 75 18 146/87 97 Room Air 06/29/17 00:00 73 06/28/17 20:00 87 18 Room Air 06/28/17 20:00 76 06/28/17 20:00 98.7 75 18 110/64 97 Room Air General Appearance: no apparent distress, alert Neck: supple Cardiovascular: normal rate, regular rhythm Respiratory/Chest: lungs clear, normal breath sounds Abdomen: normal bowel sounds, non tender, soft Extremities: no swelling Intake and Output 06/28/17 06/29/17 19:00 07:00 Intake Total 240 ml 240 ml Output Total 200 ml Balance 240 ml 40 ml Intake Oral 240 ml 240 ml Output Urine Total 200 ml # Voids 2 4 # Bowel Movements 1 Laboratory Tests Test 06/29/17 06:05 White Blood Count 4.1 K/UL (4.8-10.8) L Red Blood Count 3.57 M/UL (4.20-5.40) L Hemoglobin 11.0 G/DL (12.0-16.0) L Hematocrit 33.5 % (37.0-47.0) L Mean Corpuscular Volume 94 FL (80-99) Mean Corpuscular Hemoglobin 30.9 PG (27.0-31.0) Mean Corpuscular Hemoglobin Concent 33.0 G/DL (32.0-36.0) Red Cell Distribution Width 13.1 % (11.6-14.8) Platelet Count 233 K/UL (150-450) Mean Platelet Volume 6.9 FL (6.5-10.1) Neutrophils (%) (Auto) 37.9 % (45.0-75.0) L Lymphocytes (%) (Auto) 43.8 % (20.0-45.0) Monocytes (%) (Auto) 10.4 % (1.0-10.0) H Eosinophils (%) (Auto) 6.2 % (0.0-3.0) H Basophils (%) (Auto) 1.7 % (0.0-2.0) Prothrombin Time 11.2 SEC (9.30-11.50) Prothromb Time International Ratio 1.1 (0.9-1.1) Activated Partial Thromboplast Time 27 SEC (23-33) Sodium Level 138 MMOL/L (136-145) Potassium Level 4.1 MMOL/L (3.5-5.1) Chloride Level 103 MMOL/L (98-107) Carbon Dioxide Level 32 MMOL/L (21-32) Anion Gap 3 mmol/L (5-15) L Blood Urea Nitrogen 19 mg/dL (7-18) H Creatinine 0.8 MG/DL (0.55-1.30) Estimat Glomerular Filtration Rate > 60 mL/min (>60) Glucose Level 83 MG/DL (74-106) Calcium Level 8.3 MG/DL (8.5-10.1) L Troponin I 0.011 ng/mL (0.000-0.056) C-Reactive Protein, Quantitative < 0.4 mg/dL (0.00-0.90) Triglycerides Level 45 MG/DL (30-150) Cholesterol Level 147 MG/DL (< 200) LDL Cholesterol 58 mg/dL (<100) HDL Cholesterol 89 MG/DL (40-60) H Cholesterol/HDL Ratio 1.7 (3.3-4.4) L Thyroid Stimulating Hormone (TSH) 1.291 uiU/mL (0.358-3.740) NELA KAUFMAN Jun 29, 2017 16:43
--- NOTE | 2017-06-29 16:48 | Pulmonology Progress Note ---
Assessment/Plan Problems: (1) Atypical Parkinson syndrom, advanced (2) Chest pain Assessment/Plan cardiology input appreciated neurology consult appreciated asymptoamtic now less shading d/w dr osullivan med/surg Subjective ROS Limited/Unobtainable: No Interval Events: shaking better, Allergies: Coded Allergies: No Known Allergies (Unverified , 06/27/17) Objective Last 24 Hour Vital Signs Date Time Temp Pulse Resp B/P (MAP) Pulse Ox O2 Delivery O2 Flow Rate FiO2 06/29/17 16:00 98.2 88 19 92/55 97 Room Air 06/29/17 14:26 97.6 06/29/17 12:00 76 06/29/17 12:00 97.6 76 20 93/56 98 Room Air 06/29/17 08:17 82 18 Room Air 06/29/17 08:00 78 06/29/17 08:00 97.9 75 20 99/64 96 Room Air 06/29/17 04:00 97.0 60 22 137/74 96 Room Air 06/29/17 04:00 79 06/29/17 00:00 98.7 75 18 146/87 97 Room Air 06/29/17 00:00 73 06/28/17 20:00 87 18 Room Air 06/28/17 20:00 76 06/28/17 20:00 98.7 75 18 110/64 97 Room Air Intake and Output 06/28/17 06/29/17 19:00 07:00 Intake Total 240 ml 240 ml Output Total 200 ml Balance 240 ml 40 ml Intake Oral 240 ml 240 ml Output Urine Total 200 ml # Voids 2 4 # Bowel Movements 1 General Appearance: cachetic HEENT: normocephalic, atraumatic Respiratory/Chest: chest wall non-tender, lungs clear Breasts: no masses Cardiovascular: normal peripheral pulses Abdomen: normal bowel sounds, soft, non tender, no scars Genitourinary: normal external genitalia Skin: no rash Neurologic/Psychiatric: no motor/sensory deficits Laboratory Tests 06/29/17 06:05: White Blood Count 4.1L, Red Blood Count 3.57L, Hemoglobin 11.0L, Hematocrit 33.5L, Mean Corpuscular Volume 94, Mean Corpuscular Hemoglobin 30.9, Mean Corpuscular Hemoglobin Concent 33.0, Red Cell Distribution Width 13.1, Platelet Count 233, Mean Platelet Volume 6.9, Neutrophils (%) (Auto) 37.9L, Lymphocytes ( %) (Auto) 43.8, Monocytes (%) (Auto) 10.4H, Eosinophils (%) (Auto) 6.2H, Basophils (%) (Auto) 1.7, Prothrombin Time 11.2, Prothromb Time International Ratio 1.1, Activated Partial Thromboplast Time 27, Sodium Level 138, Potassium Level 4.1, Chloride Level 103, Carbon Dioxide Level 32, Anion Gap 3L, Blood Urea Nitrogen 19H, Creatinine 0.8, Estimat Glomerular Filtration Rate > 60, Glucose Level 83, Calcium Level 8.3L, Troponin I 0.011, C-Reactive Protein, Quantitative < 0.4, Triglycerides Level 45, Cholesterol Level 147, LDL Cholesterol 58, HDL Cholesterol 89H, Cholesterol/HDL Ratio 1.7L, Thyroid Stimulating Hormone (TSH) 1.291 Current Medications Medications (Trade) Dose Ordered Sig/Alma Route PRN Reason Start Time Stop Time Status Last Admin Dose Admin Acetaminophen (Tylenol) 650 mg Q4H PRN ORAL FEVER 06/28/17 00:15 07/28/17 00:14 Albuterol/ Ipratropium (Albuterol/ Ipratropium) 3 ml Q4H PRN HHN Shortness of Breath 06/28/17 00:15 07/03/17 00:14 Aspirin (ASA) 162 mg DAILY ORAL 06/28/17 09:00 07/28/17 08:59 06/29/17 09:42 Carbidopa/Levodopa (Sinemet 25/100) 1 tab THREE TIMES A DAY ORAL 06/28/17 18:00 07/28/17 17:59 06/29/17 13:27 Cyclobenzaprine HCl (Flexeril) 10 mg THREE TIMES A DAY ORAL 06/28/17 15:30 07/28/17 15:29 06/29/17 13:27 Diltiazem HCl (Cardizem) 10 mg Q1H PRN IV heart rate more than 120, 06/28/17 00:15 07/28/17 00:14 Enalaprilat (Vasotec) 2.5 mg Q6H PRN IV sbp more than 160 06/28/17 00:15 07/28/17 00:14 Heparin Sodium (Porcine) (Heparin 5000 units/ml) 5,000 units EVERY 12 HOURS SUBQ 06/28/17 09:00 07/28/17 08:59 06/29/17 09:45 Lorazepam (Ativan 2mg/ml 1ml) 1 mg Q12HR IV 06/28/17 21:00 07/05/17 20:59 06/29/17 09:43 Morphine Sulfate (Morphine Sulfate) 2 mg Q4H PRN IVP severe Pain (Pain Scale 7-10) 06/28/17 00:15 07/05/17 00:14 Multivitamins (Multivitamins) 1 tab DAILY ORAL 06/29/17 09:00 07/29/17 08:59 06/29/17 09:42 Nitroglycerin (Ntg) 0.4 mg Q5M PRN SL Prn Chest Pain 06/28/17 00:15 07/28/17 00:14 Ondansetron HCl (Zofran) 4 mg Q6H PRN IVP Nausea & Vomiting 06/28/17 00:15 07/28/17 00:14 Polyethylene Glycol (Miralax) 17 gm DAILYPRN PRN ORAL Constipation 06/28/17 00:15 07/28/17 00:14 Temazepam (Restoril) 15 mg HSPRN PRN ORAL Insomnia 06/28/17 00:15 07/05/17 00:14 LUKE MARTE Jun 29, 2017 16:48
--- NOTE | 2017-06-29 17:33 | Internal Med Progress Note ---
Subjective Date of Service: Jun 29, 2017 Physician Name Spivey,Mine Attending Physician Robin Chow MD Current Medications Medications (Trade) Dose Ordered Sig/Alma Route PRN Reason Start Time Stop Time Status Last Admin Dose Admin Acetaminophen (Tylenol) 650 mg Q4H PRN ORAL FEVER 06/28/17 00:15 07/28/17 00:14 Albuterol/ Ipratropium (Albuterol/ Ipratropium) 3 ml Q4H PRN HHN Shortness of Breath 06/28/17 00:15 07/03/17 00:14 Aspirin (ASA) 162 mg DAILY ORAL 06/28/17 09:00 07/28/17 08:59 06/29/17 09:42 Carbidopa/Levodopa (Sinemet 25/100) 1 tab THREE TIMES A DAY ORAL 06/28/17 18:00 07/28/17 17:59 06/29/17 13:27 Cyclobenzaprine HCl (Flexeril) 10 mg THREE TIMES A DAY ORAL 06/28/17 15:30 07/28/17 15:29 06/29/17 13:27 Diltiazem HCl (Cardizem) 10 mg Q1H PRN IV heart rate more than 120, 06/28/17 00:15 07/28/17 00:14 Enalaprilat (Vasotec) 2.5 mg Q6H PRN IV sbp more than 160 06/28/17 00:15 07/28/17 00:14 Heparin Sodium (Porcine) (Heparin 5000 units/ml) 5,000 units EVERY 12 HOURS SUBQ 06/28/17 09:00 07/28/17 08:59 06/29/17 09:45 Lorazepam (Ativan 2mg/ml 1ml) 1 mg Q12HR IV 06/28/17 21:00 07/05/17 20:59 06/29/17 09:43 Morphine Sulfate (Morphine Sulfate) 2 mg Q4H PRN IVP severe Pain (Pain Scale 7-10) 06/28/17 00:15 07/05/17 00:14 Multivitamins (Multivitamins) 1 tab DAILY ORAL 06/29/17 09:00 07/29/17 08:59 06/29/17 09:42 Nitroglycerin (Ntg) 0.4 mg Q5M PRN SL Prn Chest Pain 06/28/17 00:15 07/28/17 00:14 Ondansetron HCl (Zofran) 4 mg Q6H PRN IVP Nausea & Vomiting 06/28/17 00:15 07/28/17 00:14 Polyethylene Glycol (Miralax) 17 gm DAILYPRN PRN ORAL Constipation 06/28/17 00:15 07/28/17 00:14 Temazepam (Restoril) 15 mg HSPRN PRN ORAL Insomnia 06/28/17 00:15 07/05/17 00:14 Allergies: Coded Allergies: No Known Allergies (Unverified , 06/27/17) ROS Limited/Unobtainable: No Constitutional: Reports: no symptoms HEENT: Reports: no symptoms Cardiovascular: Reports: chest pain Respiratory: Reports: no symptoms Gastrointestinal/Abdominal: Reports: no symptoms Genitourinary: Reports: no symptoms Neurologic/Psychiatric: Reports: tremors Subjective 67 YO F admitted with chest pain and tremors. Cover for Int Med-Dr Chow Objective Last Vital Signs Date Time Temp Pulse Resp B/P (MAP) Pulse Ox O2 Delivery O2 Flow Rate FiO2 06/29/17 16:00 98.2 88 19 92/55 97 Room Air General Appearance: WD/WN, no apparent distress, alert EENT: PERRL/EOMI, normal ENT inspection Neck: non-tender, normal alignment, supple, normal inspection Cardiovascular: normal peripheral pulses, normal rate, regular rhythm, no gallop/murmur, no JVD Respiratory/Chest: chest wall non-tender, lungs clear, normal breath sounds, no respiratory distress, no accessory muscle use, respiratory distress Abdomen: normal bowel sounds, non tender, soft, no organomegaly, no mass Extremities: normal range of motion, non-tender, normal inspection Neurologic: hand cooper helper II-XII grossly normal, no motor/sensory deficits Skin: normal pigmentation, warm/dry Laboratory Tests Test 06/29/17 06:05 White Blood Count 4.1 K/UL (4.8-10.8) L Red Blood Count 3.57 M/UL (4.20-5.40) L Hemoglobin 11.0 G/DL (12.0-16.0) L Hematocrit 33.5 % (37.0-47.0) L Mean Corpuscular Volume 94 FL (80-99) Mean Corpuscular Hemoglobin 30.9 PG (27.0-31.0) Mean Corpuscular Hemoglobin Concent 33.0 G/DL (32.0-36.0) Red Cell Distribution Width 13.1 % (11.6-14.8) Platelet Count 233 K/UL (150-450) Mean Platelet Volume 6.9 FL (6.5-10.1) Neutrophils (%) (Auto) 37.9 % (45.0-75.0) L Lymphocytes (%) (Auto) 43.8 % (20.0-45.0) Monocytes (%) (Auto) 10.4 % (1.0-10.0) H Eosinophils (%) (Auto) 6.2 % (0.0-3.0) H Basophils (%) (Auto) 1.7 % (0.0-2.0) Prothrombin Time 11.2 SEC (9.30-11.50) Prothromb Time International Ratio 1.1 (0.9-1.1) Activated Partial Thromboplast Time 27 SEC (23-33) Sodium Level 138 MMOL/L (136-145) Potassium Level 4.1 MMOL/L (3.5-5.1) Chloride Level 103 MMOL/L (98-107) Carbon Dioxide Level 32 MMOL/L (21-32) Anion Gap 3 mmol/L (5-15) L Blood Urea Nitrogen 19 mg/dL (7-18) H Creatinine 0.8 MG/DL (0.55-1.30) Estimat Glomerular Filtration Rate > 60 mL/min (>60) Glucose Level 83 MG/DL (74-106) Calcium Level 8.3 MG/DL (8.5-10.1) L Troponin I 0.011 ng/mL (0.000-0.056) C-Reactive Protein, Quantitative < 0.4 mg/dL (0.00-0.90) Triglycerides Level 45 MG/DL (30-150) Cholesterol Level 147 MG/DL (< 200) LDL Cholesterol 58 mg/dL (<100) HDL Cholesterol 89 MG/DL (40-60) H Cholesterol/HDL Ratio 1.7 (3.3-4.4) L Thyroid Stimulating Hormone (TSH) 1.291 uiU/mL (0.358-3.740) Intake and Output 06/28/17 06/29/17 19:00 07:00 Intake Total 240 ml 240 ml Output Total 200 ml Balance 240 ml 40 ml Intake Oral 240 ml 240 ml Output Urine Total 200 ml # Voids 2 4 # Bowel Movements 1 Assessment/Plan Problem List: (1) Parkinson disease Assessment & Plan: See neurology note. Cont sinemet (2) Tremor (3) HTN (hypertension) Assessment & Plan: Cont vasotec and cardizem (4) Chest pain Assessment & Plan: See Cardiology note. Status: not improved MINE SPIVEY Jun 29, 2017 17:33
--- NOTE | 2017-06-29 19:02 | Wound Care Consultation ---
Wound Assessment Wound Assessment : Wound Number: 1 Wound Present on Admission: Yes New Wound: No Status Change of Wound: No Wound Location Body Site Modif: mid Wound Location Body Site: sacral Wound Type: scar Sen Test: Does not Sen Wound Thickness: Full Thickness Wound Length: 2.0 Wound Width: 0.3 Percent of Wound [place]/Red: 100 Wound Drainage Amount: None Wound Drainage Odor: None/Absent Tissue Surrounding Wound: Intact Wound General Appearance: Asymptomatic Wound Comment #1 Sacral full thickness scar tissue. At risk for further skin breakdown Recommendation -Local wound care per protocol -Keep clean and dry -Optimize nutrition -Turn and reposition -Heel protector on both heels -Offload both heels -Low air loss mattress -Assess and f/u accordingly for any changes ONEIL CHO RN Jun 29, 2017 19:02
[2017-06-29 20:00] VITALS: BP 132/59
--- NOTE | 2017-06-29 21:00 | History and Physical Report ---
DATE OF ADMISSION: 06/27/2017 CHIEF COMPLAINT: The patient is a 67-year-old female, who presents with chief complaint of chest pain and tremors. HISTORY OF PRESENT ILLNESS: The patient is a resident of [facility]. According to staff at [facility], the patient began to have uncontrolled tremors of her arms yesterday, 06/27/2017. The patient then began to experience chest pain. Chest pain does not radiate to the jaw or to the shoulders. The patient presented to [facility] emergency room. The patient was admitted for chest pain to rule out acute coronary syndrome and uncontrolled tremors of her arms. REVIEW OF SYSTEMS: CONSTITUTIONAL: The patient denies weight loss or gain. The patient denies fevers or chills. HEENT: The patient denies ear or throat pain. The patient denies headache. CARDIOVASCULAR: The patient complains of chest pain as above. The patient denies palpitations. ABDOMEN: The patient denies nausea, vomiting, diarrhea, or constipation. CHEST: The patient denies wheeze or shortness of breath. GENITOURINARY: The patient denies dysuria or increased frequency of urination. NEUROMUSCULAR: The patient complains of uncontrolled tremors as above. The patient denies seizures or generalized weakness. PAST MEDICAL HISTORY: Significant for: 1. Chronic low back pain. 2. Unspecified tremors of the upper extremities. PAST SURGICAL HISTORY: Significant for lumbar laminectomy. CURRENT MEDICATIONS: 1. Tylenol 650 mg p.o. q.4 h. p.r.n. 2. Ativan 0.5 mg p.o. q.8 h. p.r.n. 3. Atrovent metered-dose inhaler two puffs p.o. q.6 h. p.r.n. 4. DuoNeb 0.5/2.5 nebulized q.8 h. p.r.n. 5. Magnesium oxide 40 mg p.o. at bedtime. 6. Multivitamin p.o. daily. 7. Primidone 50 mg p.o. at bedtime for tremors. 8. 42.5 mg p.o. daily for tremors. 9. Propranolol 20 mg p.o. 3 times daily for hypertension. 10. Tramadol 50 mg p.o. q.6 h. p.r.n. pain. 11. Vitamin C 500 mg p.o. daily. ALLERGIES: No known drug allergies. SOCIAL HISTORY: The patient is a resident of [facility]. The patient is single. The patient denies tobacco or alcohol use. PHYSICAL EXAMINATION: VITAL SIGNS: Temperature 97.9, respirations 20, pulse 69 to 93, and blood pressure 106/69. GENERAL: The patient is a thin-appearing, female, in no apparent distress. HEENT: Eyes, pupils are equal and responsive to light and accommodation. Extraocular movements are intact. NECK: Supple without lymphadenopathy. CHEST: Lungs are clear to auscultation bilaterally without wheezes or rales. CARDIOVASCULAR: Regular rate. S1, S2 normal without murmurs, rubs, or gallops. ABDOMEN: Soft, nontender, nondistended. Positive bowel sounds. No evidence of hepatosplenomegaly. Currently, no rebound or guarding noted. EXTREMITIES: Negative for clubbing, cyanosis, or edema. RECTAL: Refused. GENITAL: Refused. NEUROLOGIC: The patient does have resting tremor of bilateral upper extremities. Cranial nerves II through XII are grossly intact without focal deficits. Motor strength is 5/5 bilaterally. Deep tendon reflexes are 2+ plantar. LABORATORY AND DIAGNOSTIC DATA: Laboratory studies, WBC 5.1, hemoglobin 12.2, hematocrit 37.7, and platelets 275,000. Sodium 138, potassium 4.7, chloride 104, CO2 31, BUN 21, creatinine 0.7, glucose 100. Troponin 0.0. BNP 219. Chest x-ray revealed no acute disease. ASSESSMENT: This is a 67-year-old female, 1. Chest pain. 2. Tremors. 3. Probable Parkinson syndrome. 4. Hypertension. TREATMENT: 1. Chest pain. A Cardiology consultation is pending with Dr. Denys Vargas. Serial troponin levels will be performed. We will follow recommendations of Cardiology. 2. Tremors, may be advanced Parkinson's. A Neurology consultation is pending with Dr. Guido. We will follow recommendations of Neurology, Dr. Guido. Continue primidone as above. 3. Hypertension. Continue propranolol as above. Jerome Nichole M.D. DR: CRESENCIO JOB#: [id number] CC:
[2017-06-29] MEDS ORDERED: Nitroglycerin Subl 0.4mg tab SL PRN (21:05)
[2017-06-29] MEDS ORDERED: dilTIAZem HCl 25mg/5ml Inj IV PRN (21:15)
[2017-06-29] MEDS ORDERED: Enalaprilat 2.5mg/2ml Inj IV PRN (21:44)
[2017-06-29] MEDS ORDERED: Morphine Sulfate 2mg/ml Inj IVP PRN (21:44)
[2017-06-29] MEDS ORDERED: Miralax 17gm pkt ORAL PRN (21:45)
[2017-06-30] VITALS (8 sets, daily range): BP systolic 82–109; BP diastolic 44–61
[2017-06-30] MEDS ORDERED: Albuterol/Ipratropium 3ml neb HHN PRN ×2 (00:15→14:45)
--- NOTE | 2017-06-30 05:15 | Consultation ---
DATE OF CONSULTATION: 06/28/2017 NOTE: POOR AUDIO CARDIAC CONSULTATION CONSULTING PHYSICIAN: Denys Vargas M.D. REFERRING PHYSICIAN: Alcides Sanford M.D. REASON FOR REFERRAL: Chest pain. HISTORY OF PRESENT ILLNESS: This is a 67-year-old very unfortunate middle-aged female, who has a history of Parkinson's. The patient is a [facility], has significant Parkinson's. She tells me that her tremors got so bad last night that she in the chest and so she has complained of chest pain and she was brought to the emergency room at [facility] and has been admitted. This consultation requested by Dr. Chow and Dr. Sanford for evaluation of the patient's pain. She has the pain still and she indicates that the area is tender to palpation. She does not have any PND or orthopnea. No palpitation. No dizziness or lightheadedness, although she does not stand at this time. She has no palpitations or shortness of breath. PAST MEDICAL HISTORY: Extensive and I have had a chance to review the patient's records at [facility] that indicate she has had a history of Parkinson's as well as lumbar disc disease, fusion, tremors, urinary tract infection, reactive airway disease, shoulder pain of unknown chronicity, recent respiratory failure, hypercapnic, post intubation and extubation due to severe respiratory acidosis secondary to metabolic encephalopathy, pulseless electric activity with cardiopulmonary arrest reportedly at [facility], influenza infection, and anxiety. During the last hospitalization in April, she reportedly had a pulseless electrical activity . [facility] It does not appear that she had any significant cardiac workup that was performed excluding an echocardiogram that showed hyperdynamic systolic function. ALLERGIES: She is not allergic to any medications. SOCIAL HISTORY: She does not smoke or drink alcoholic beverages. REVIEW OF SYSTEMS: GASTROINTESTINAL: Negative. GENITOURINARY: Negative. PULMONARY: Negative. CONSTITUTIONAL: She indicates only occasional night sweats. NEUROLOGICAL: She has got Parkinson's and significant tremor. PHYSICAL EXAMINATION: GENERAL: Shows to be a thin elderly female, in no respiratory distress. NECK: Supple. No jugular venous distention is noted. LUNGS: Clear to auscultation and percussion. Of note, the patient's chest wall is tender to palpation on evaluation. CARDIAC: S1, S2 are normal. Regular rate and rhythm. No heaves. No thrills. No gallops. No rubs are noted. ABDOMEN: Soft and nontender. Positive bowel sounds. EXTREMITIES: There is no clubbing, cyanosis, or edema. NEUROLOGIC: She is awake, alert, and responsive and in no respiratory distress. LABORATORY AND DIAGNOSTIC DATA: Her electrocardiogram shows basically sinus rhythm, no QRS axis, and no ST-T wave abnormalities. This EKG was performed earlier, but she had significant tremor that affected the interpretation of the EKG. Her echocardiogram preliminary report shows ejection fraction of 65% to 70% and no evidence of pericardial effusion . Sodium 138, potassium 4.7, chloride 104, bicarbonate 31, BUN 21, creatinine 0.7, and glucose of 100. Troponin 0.00. ProBNP of 219. Coags, INR 1.0 and PTT of 22. Urinalysis, 5 to 10 WBCs and 2 to 4 RBCs. A chest x-ray performed showed no evidence of acute cardiopulmonary process, borderline cardiomegaly. ASSESSMENT AND PLAN: 1. Chest pain, possible chest wall pain, tenderness to palpation. 2. Status post recent pulseless electrical activity, hospitalized at [facility]. 3. Parkinson disease, on Sinemet now. Dr. Sanford, this patient was seen in cardiac consultation. The patient seems to think the chest wall tenderness is what caused her pain as the description that she provides is consistent with that. She requires serial enzymes and EKGs. workup that was initiated and performed at [facility] after her supposed arrest and the fact that she had a troponin of approximately 2. Her pain at this time does not appear to be description-macario an ischemic pain and there are no electrocardiographic abnormalities. She is quite disabled from her Parkinson's and basically bedbound. She is nonambulatory. We would recommend repeating the cardiac enzymes and EKGs and if normal, I would probably not pursue any further at this time, especially since the echocardiogram remains with normal LV function, otherwise options will need to be discussed. Denys Vargas M.D. DR: ARIS JOB#: [id number] CC:
[2017-06-30 08:23] LABS: BASOPHILS % (AUTO) 1.7 % (0.0-2.0); EOSINOPHILS % (AUTO) 6.6 % (0.0-3.0); HEMATOCRIT 34.2 % (37.0-47.0); HEMOGLOBIN 11.5 G/DL (12.0-16.0); LYMPHOCYTES % (AUTO) 49.6 % (20.0-45.0); MEAN CORPUSCULAR VOLUME 93 FL (80-99); MONOCYTES % (AUTO) 9.7 % (1.0-10.0); NEUTROPHILS % (AUTO) 32.4 % (45.0-75.0); PLATELET COUNT 215 K/UL (150-450); RED BLOOD COUNT 3.67 M/UL (4.20-5.40); RED CELL DISTRIBUTION WIDTH 13.4 % (11.6-14.8); WHITE BLOOD COUNT 3.8 K/UL (4.8-10.8)
[2017-06-30 08:52] LABS: ANION GAP 3 mmol/L (5-15); BLOOD UREA NITROGEN 22 mg/dL (7-18); CALCIUM 8.3 MG/DL (8.5-10.1); CARBON DIOXIDE 32 MMOL/L (21-32); CHLORIDE 105 MMOL/L (98-107); CREATININE 0.7 MG/DL (0.55-1.30); POTASSIUM 4.5 MMOL/L (3.5-5.1); SODIUM 140 MMOL/L (136-145)
[2017-06-30] MEDS ORDERED: Aspirin Baby 81mg ORAL SCH (09:00)
[2017-06-30] MEDS: Levodopa/Carbidopa 25/100 tab ORAL SCH ×3 (09:25→17:40)
[2017-06-30] MEDS: Cyclobenzaprine 10mg Tab ORAL SCH ×3 (09:27→17:41)
--- NOTE | 2017-06-30 09:27 | Pulmonology Progress Note ---
Assessment/Plan Assessment/Plan ASSESSMENT Atypical chest pain (due to likely sternum fracture) likely sternum fracture atypical Parkinson syndrome, advanced hypotension with hx of HTN~ tremors PLAN OF CARE Tele cardio follows serial troponin negative , ECG no acute ischemic changes CW TTP, ribs series negative, sternum X ray with findings suspicious of fracture CT chest pending pain management ECHO Venous Duplex negative Neuro follows continue Sinemet needs rehab and fup with neuro as outpt DVT prophylaxis O2 HHN prn monitor BP, hypotensive, no need for anti HTN at this time give 500 cc NS bolus transfer to [facility] case discussed and evaluated by supervising physician Subjective Allergies: Coded Allergies: No Known Allergies (Unverified , 06/27/17) Subjective denies SOB chest pain with palpation of chest wall less tremors CT chest pending Objective Last 24 Hour Vital Signs Date Time Temp Pulse Resp B/P (MAP) Pulse Ox O2 Delivery O2 Flow Rate FiO2 06/30/17 04:00 96.8 84 18 109/61 97 Room Air 06/30/17 04:00 65 06/30/17 00:00 72 06/30/17 00:00 98.0 74 18 89/57 95 Room Air 06/29/17 20:00 96.6 64 18 132/59 98 Room Air 06/29/17 20:00 88 06/29/17 18:34 98.2 06/29/17 16:00 79 06/29/17 16:00 98.2 88 19 92/55 97 Room Air 06/29/17 12:00 76 06/29/17 12:00 97.6 76 20 93/56 98 Room Air General Appearance: no acute distress, other - bedridden, awake, alert, responsive femnale HEENT: normocephalic, atraumatic, anicteric, mucous membranes moist Respiratory/Chest: lungs clear, no respiratory distress Cardiovascular: normal rate - SR-ST on tele , no JVD Abdomen: normal bowel sounds, soft, non tender Extremities: no edema Neurologic/Psychiatric: abnormal gait, alert, responsive, other - tremors vega hands Laboratory Tests 06/30/17 05:34: White Blood Count 3.8L, Red Blood Count 3.67L, Hemoglobin 11.5L, Hematocrit 34.2L, Mean Corpuscular Volume 93, Mean Corpuscular Hemoglobin 31.2H, Mean Corpuscular Hemoglobin Concent 33.5, Red Cell Distribution Width 13.4, Platelet Count 215, Mean Platelet Volume 6.8, Neutrophils (%) (Auto) 32.4L, Lymphocytes ( %) (Auto) 49.6H, Monocytes (%) (Auto) 9.7, Eosinophils (%) (Auto) 6.6H, Basophils (%) (Auto) 1.7, Sodium Level 140, Potassium Level 4.5, Chloride Level 105, Carbon Dioxide Level 32, Anion Gap 3L, Blood Urea Nitrogen 22H, Creatinine 0.7, Estimat Glomerular Filtration Rate > 60, Glucose Level 77, Calcium Level 8.3L, Troponin I 0.003 Current Medications Medications (Trade) Dose Ordered Sig/Alma Route PRN Reason Start Time Stop Time Status Last Admin Dose Admin Acetaminophen (Tylenol) 650 mg Q4H PRN ORAL FEVER 06/29/17 21:43 07/29/17 21:42 Albuterol/ Ipratropium (Albuterol/ Ipratropium) 3 ml Q4H PRN HHN Shortness of Breath 06/30/17 00:15 07/03/17 00:14 Aspirin (ASA) 162 mg DAILY ORAL 06/30/17 09:00 07/28/17 08:59 Carbidopa/Levodopa (Sinemet 25/100) 1 tab THREE TIMES A DAY ORAL 06/30/17 09:00 07/28/17 17:59 Cyclobenzaprine HCl (Flexeril) 10 mg THREE TIMES A DAY ORAL 06/30/17 09:00 07/28/17 15:29 Diltiazem HCl (Cardizem) 10 mg Q1H PRN IV heart rate more than 120, 06/29/17 21:15 07/28/17 00:14 Enalaprilat (Vasotec) 2.5 mg Q6H PRN IV sbp more than 160 06/29/17 21:44 07/29/17 21:43 Heparin Sodium (Porcine) (Heparin 5000 units/ml) 5,000 units EVERY 12 HOURS SUBQ 06/29/17 21:00 07/28/17 08:59 Lorazepam (Ativan 2mg/ml 1ml) 1 mg Q12HR IV 06/29/17 21:00 07/05/17 20:59 Morphine Sulfate (Morphine Sulfate) 2 mg Q4H PRN IVP severe Pain (Pain Scale 7-10) 06/29/17 21:44 07/06/17 21:43 Multivitamins (Multivitamins) 1 tab DAILY ORAL 06/30/17 09:00 07/29/17 08:59 Nitroglycerin (Ntg) 0.4 mg Q5M PRN SL Prn Chest Pain 06/29/17 21:05 07/28/17 00:14 Ondansetron HCl (Zofran) 4 mg Q6H PRN IVP Nausea & Vomiting 06/29/17 21:45 07/29/17 21:44 Polyethylene Glycol (Miralax) 17 gm DAILYPRN PRN ORAL Constipation 06/29/17 21:45 07/29/17 21:44 Temazepam (Restoril) 15 mg HSPRN PRN ORAL Insomnia 06/29/17 21:45 07/06/17 21:44 [facility]Andreia NP Jun 30, 2017 09:26
[2017-06-30] MEDS: LORazepam Inj 2mg/ml 1ml IV SCH (09:31)
[2017-06-30] MEDS: Heparin 5000 units/ml inj SUBQ SCH ×2 (09:41→20:27)
--- NOTE | 2017-06-30 12:58 | Internal Med Progress Note ---
Subjective Date of Service: Jun 30, 2017 Physician Name Spivey,Mine Attending Physician Robin Chow MD Current Medications Medications (Trade) Dose Ordered Sig/Alma Route PRN Reason Start Time Stop Time Status Last Admin Dose Admin Acetaminophen (Tylenol) 650 mg Q4H PRN ORAL FEVER 06/29/17 21:43 07/29/17 21:42 Albuterol/ Ipratropium (Albuterol/ Ipratropium) 3 ml Q4H PRN HHN Shortness of Breath 06/30/17 00:15 07/03/17 00:14 Aspirin (ASA) 162 mg DAILY ORAL 06/30/17 09:00 07/28/17 08:59 06/30/17 09:24 Carbidopa/Levodopa (Sinemet 25/100) 1 tab THREE TIMES A DAY ORAL 06/30/17 09:00 07/28/17 17:59 06/30/17 09:25 Cyclobenzaprine HCl (Flexeril) 10 mg THREE TIMES A DAY ORAL 06/30/17 09:00 07/28/17 15:29 06/30/17 09:27 Diltiazem HCl (Cardizem) 10 mg Q1H PRN IV heart rate more than 120, 06/29/17 21:15 07/28/17 00:14 Enalaprilat (Vasotec) 2.5 mg Q6H PRN IV sbp more than 160 06/29/17 21:44 07/29/17 21:43 Heparin Sodium (Porcine) (Heparin 5000 units/ml) 5,000 units EVERY 12 HOURS SUBQ 06/29/17 21:00 07/28/17 08:59 06/30/17 09:41 Morphine Sulfate (Morphine Sulfate) 2 mg Q4H PRN IVP severe Pain (Pain Scale 7-10) 06/29/17 21:44 07/06/17 21:43 Multivitamins (Multivitamins) 1 tab DAILY ORAL 06/30/17 09:00 07/29/17 08:59 06/30/17 09:25 Nitroglycerin (Ntg) 0.4 mg Q5M PRN SL Prn Chest Pain 06/29/17 21:05 07/28/17 00:14 Ondansetron HCl (Zofran) 4 mg Q6H PRN IVP Nausea & Vomiting 06/29/17 21:45 07/29/17 21:44 Polyethylene Glycol (Miralax) 17 gm DAILYPRN PRN ORAL Constipation 06/29/17 21:45 07/29/17 21:44 Temazepam (Restoril) 15 mg HSPRN PRN ORAL Insomnia 06/29/17 21:45 07/06/17 21:44 Allergies: Coded Allergies: No Known Allergies (Unverified , 06/27/17) ROS Limited/Unobtainable: No Constitutional: Reports: no symptoms HEENT: Reports: no symptoms Cardiovascular: Reports: no symptoms Respiratory: Reports: no symptoms Gastrointestinal/Abdominal: Reports: no symptoms Genitourinary: Reports: no symptoms Neurologic/Psychiatric: Reports: tremors Subjective 67 YO F admitted with chest pain and tremors. Hypotensive today 80's/40's. Cover for Int Juan Luis-Dr Chow Objective Last Vital Signs Date Time Temp Pulse Resp B/P (MAP) Pulse Ox O2 Delivery O2 Flow Rate FiO2 06/30/17 12:35 89/51 06/30/17 12:00 97.1 85 20 97 Room Air Laboratory Tests Test 06/30/17 05:34 White Blood Count 3.8 K/UL (4.8-10.8) L Red Blood Count 3.67 M/UL (4.20-5.40) L Hemoglobin 11.5 G/DL (12.0-16.0) L Hematocrit 34.2 % (37.0-47.0) L Mean Corpuscular Volume 93 FL (80-99) Mean Corpuscular Hemoglobin 31.2 PG (27.0-31.0) H Mean Corpuscular Hemoglobin Concent 33.5 G/DL (32.0-36.0) Red Cell Distribution Width 13.4 % (11.6-14.8) Platelet Count 215 K/UL (150-450) Mean Platelet Volume 6.8 FL (6.5-10.1) Neutrophils (%) (Auto) 32.4 % (45.0-75.0) L Lymphocytes (%) (Auto) 49.6 % (20.0-45.0) H Monocytes (%) (Auto) 9.7 % (1.0-10.0) Eosinophils (%) (Auto) 6.6 % (0.0-3.0) H Basophils (%) (Auto) 1.7 % (0.0-2.0) Sodium Level 140 MMOL/L (136-145) Potassium Level 4.5 MMOL/L (3.5-5.1) Chloride Level 105 MMOL/L (98-107) Carbon Dioxide Level 32 MMOL/L (21-32) Anion Gap 3 mmol/L (5-15) L Blood Urea Nitrogen 22 mg/dL (7-18) H Creatinine 0.7 MG/DL (0.55-1.30) Estimat Glomerular Filtration Rate > 60 mL/min (>60) Glucose Level 77 MG/DL (74-106) Calcium Level 8.3 MG/DL (8.5-10.1) L Troponin I 0.003 ng/mL (0.000-0.056) Microbiology Date/Time Source Procedure Growth Status 06/28/17 01:20 Nasal Nares MRSA Culture - Final Staphylococcus Aureus - Mrsa Complete 06/28/17 01:20 Rectum VRE Culture - Final NO VANCOMYCIN RESISTANT ENTEROCOCCUS ... Complete Objective General Appearance: WD/WN, no apparent distress, alert EENT: PERRL/EOMI, normal ENT inspection Neck: non-tender, normal alignment, supple, normal inspection Cardiovascular: normal peripheral pulses, normal rate, regular rhythm, no gallop/murmur, no JVD Respiratory/Chest: chest wall non-tender, lungs clear, normal breath sounds, no respiratory distress, no accessory muscle use, respiratory distress Abdomen: normal bowel sounds, non tender, soft, no organomegaly, no mass Extremities: normal range of motion, non-tender, normal inspection Neurologic: bull ladle tender II-XII grossly normal, no motor/sensory deficits Skin: normal pigmentation, warm/dry Assessment/Plan Problem List: (1) Parkinson disease Assessment & Plan: See neurology note. Cont sinemet (2) Tremor (3) HTN (hypertension) Assessment & Plan: Currently hypotensive; Hold vasotec and cardizem (4) Chest pain Assessment & Plan: See Cardiology note. Status: not improved Assessment/Plan Transfer to [facility] due to hypotension MINE SPIVEY Jun 30, 2017 12:58
[2017-06-30] MEDS ORDERED: Sodium Chloride 500ML 500 ML IV ONE ×2 (14:15→14:30)
[2017-06-30] MEDS ORDERED: NS 250 ML IVPB ONE ×2 (14:15→14:45)
[2017-06-30] MEDS ORDERED: Miralax 17gm pkt ORAL PRN (14:30)
[2017-06-30] MEDS ORDERED: Morphine Sulfate 4mg/ml Inj IVP PRN (14:30)
[2017-06-30] MEDS ORDERED: Nitroglycerin Subl 0.4mg tab SL PRN (14:30)
[2017-06-30] MEDS ORDERED: dilTIAZem HCl 25mg/5ml Inj IV PRN (14:30)
[2017-06-30] MEDS ORDERED: Enalaprilat 2.5mg/2ml Inj IV PRN (15:45)
--- NOTE | 2017-06-30 16:05 | Cardiology Report ---
APPROVED REPORT EKG Measurement Heart [id number] Normal sinus rhythm Low voltage QRS Cannot rule out Anterior infarct, age undetermined Abnormal ECG
--- NOTE | 2017-06-30 18:42 | Cardiology Progress Note ---
Assessment/Plan Problem List: (1) Chest pain (2) Parkinson disease (3) HTN (hypertension) Status: stable, progressing Status Narrative Pt w/ COPD, parkinson's disease, recent hospitalization at [facility] for respiratory failure, pneumonia. She was admitted w/ CP. Troponin level is mildly elevated - ? demand ischemia vs ACS. EKG shows low voltage QRS, but no ischemic changes, however, and ECHO shows hyperdynamic LV with no wall motion abnormalities Assessment/Plan Plan is for conservative management, as no objective evidence for ischemia/ infarct by EKG or ECHO and symptoms have resolved. Pt is very debilitated , not ambulatory, and would be a poor candidate for invasive cardiac intervention. Subjective ROS Limited/Unobtainable: No Subjective Cardiology for Dr. Vargas Pt reports no chest pain or dyspnea. Objective Last 24 Hour Vital Signs Date Time Temp Pulse Resp B/P (MAP) Pulse Ox O2 Delivery O2 Flow Rate FiO2 06/30/17 16:00 99.0 91 18 92/53 96 Room Air 06/30/17 14:11 87 82/48 06/30/17 12:35 89/51 06/30/17 12:00 97.1 85 20 83/44 97 Room Air 06/30/17 12:00 83 06/30/17 08:00 97.5 77 19 95/54 98 Room Air 06/30/17 07:27 72 06/30/17 04:00 96.8 84 18 109/61 97 Room Air 06/30/17 04:00 65 06/30/17 00:00 72 06/30/17 00:00 98.0 74 18 89/57 95 Room Air 06/29/17 20:00 96.6 64 18 132/59 98 Room Air 06/29/17 20:00 88 General Appearance: no apparent distress, alert, thin EENT: PERRL/EOMI Neck: supple, no JVD Rhythm: NSR Cardiovascular: normal rate, regular rhythm, no gallop/murmur Respiratory/Chest: lungs clear Abdomen: non tender, soft Extremities: no swelling Laboratory Tests Test 06/30/17 05:34 White Blood Count 3.8 K/UL (4.8-10.8) L Red Blood Count 3.67 M/UL (4.20-5.40) L Hemoglobin 11.5 G/DL (12.0-16.0) L Hematocrit 34.2 % (37.0-47.0) L Mean Corpuscular Volume 93 FL (80-99) Mean Corpuscular Hemoglobin 31.2 PG (27.0-31.0) H Mean Corpuscular Hemoglobin Concent 33.5 G/DL (32.0-36.0) Red Cell Distribution Width 13.4 % (11.6-14.8) Platelet Count 215 K/UL (150-450) Mean Platelet Volume 6.8 FL (6.5-10.1) Neutrophils (%) (Auto) 32.4 % (45.0-75.0) L Lymphocytes (%) (Auto) 49.6 % (20.0-45.0) H Monocytes (%) (Auto) 9.7 % (1.0-10.0) Eosinophils (%) (Auto) 6.6 % (0.0-3.0) H Basophils (%) (Auto) 1.7 % (0.0-2.0) Sodium Level 140 MMOL/L (136-145) Potassium Level 4.5 MMOL/L (3.5-5.1) Chloride Level 105 MMOL/L (98-107) Carbon Dioxide Level 32 MMOL/L (21-32) Anion Gap 3 mmol/L (5-15) L Blood Urea Nitrogen 22 mg/dL (7-18) H Creatinine 0.7 MG/DL (0.55-1.30) Estimat Glomerular Filtration Rate > 60 mL/min (>60) Glucose Level 77 MG/DL (74-106) Calcium Level 8.3 MG/DL (8.5-10.1) L Troponin I 0.003 ng/mL (0.000-0.056) Microbiology Date/Time Source Procedure Growth Status 06/28/17 01:20 Nasal Nares MRSA Culture - Final Staphylococcus Aureus - Mrsa Complete 06/28/17 01:20 Rectum VRE Culture - Final NO VANCOMYCIN RESISTANT ENTEROCOCCUS ... Complete JAQUAN RIGGINS Jun 30, 2017 18:42
[2017-07-01] VITALS: BP 100/54
[2017-07-01 04:00] VITALS: BP 132/80
[2017-07-01 06:09] LABS: BASOPHILS % (AUTO) 1.2 % (0.0-2.0); EOSINOPHILS % (AUTO) 5.7 % (0.0-3.0); HEMATOCRIT 34.5 % (37.0-47.0); HEMOGLOBIN 11.4 G/DL (12.0-16.0); LYMPHOCYTES % (AUTO) 40.2 % (20.0-45.0); MEAN CORPUSCULAR VOLUME 94 FL (80-99); MONOCYTES % (AUTO) 10.3 % (1.0-10.0); NEUTROPHILS % (AUTO) 42.7 % (45.0-75.0); PLATELET COUNT 226 K/UL (150-450); RED BLOOD COUNT 3.69 M/UL (4.20-5.40); RED CELL DISTRIBUTION WIDTH 13.7 % (11.6-14.8); WHITE BLOOD COUNT 4.5 K/UL (4.8-10.8)
[2017-07-01 06:30] LABS: ANION GAP 3 mmol/L (5-15); BLOOD UREA NITROGEN 26 mg/dL (7-18); CALCIUM 8.5 MG/DL (8.5-10.1); CARBON DIOXIDE 29 MMOL/L (21-32); CHLORIDE 107 MMOL/L (98-107); CREATININE 0.7 MG/DL (0.55-1.30); POTASSIUM 4.2 MMOL/L (3.5-5.1); SODIUM 139 MMOL/L (136-145)
[2017-07-01 08:00] VITALS: BP 94/39
[2017-07-01] MEDS: Aspirin Baby 81mg ORAL SCH (08:28)
[2017-07-01] MEDS: Levodopa/Carbidopa 25/100 tab ORAL SCH ×3 (08:28→18:16)
[2017-07-01] MEDS: Heparin 5000 units/ml inj SUBQ SCH ×2 (08:35→20:24)
[2017-07-01] MEDS: Cyclobenzaprine 10mg Tab ORAL SCH ×3 (08:36→18:16)
--- NOTE | 2017-07-01 11:27 | Pulmonology Progress Note ---
Assessment/Plan Assessment/Plan ASSESSMENT Atypical chest pain (due to likely sternum fracture) likely sternum fracture atypical Parkinson syndrome, advanced hypotension with hx of HTN tremors PLAN OF CARE [facility] s/p few boluses, BP low, trial of low dose Midodrine cardio follows serial troponin negative , ECG no acute ischemic changes CW TTP, ribs series negative, sternum X ray with findings suspicious of fracture CT chest done, results pending pain management ECHO with pEF 65-70% and RVSP of 32 c/w mild pulmonary HTN Venous Duplex negative Neuro follows continue Sinemet needs rehab and fup with neuro as outpt DVT prophylaxis O2 HHN prn monitor BP, hypotensive, no need for anti HTN at this time case discussed and evaluated by supervising physician Subjective Allergies: Coded Allergies: No Known Allergies (Unverified , 06/27/17) All Systems: reviewed and negative except above Subjective transferred to [facility] 2/3 due to low BP s/p few boluses BP still low denies SOB chest pain with palpation of chest wall less tremors Objective Last 24 Hour Vital Signs Date Time Temp Pulse Resp B/P (MAP) Pulse Ox O2 Delivery O2 Flow Rate FiO2 07/01/17 09:35 97.5 07/01/17 08:16 86 18 Room Air 07/01/17 08:00 97.5 86 23 94/39 99 Room Air 07/01/17 04:00 97.5 70 20 132/80 99 Room Air 07/01/17 04:00 70 07/01/17 00:00 97.8 76 20 100/54 95 Room Air 07/01/17 00:00 74 06/30/17 20:00 97.3 98 18 106/60 98 Room Air 06/30/17 20:00 83 06/30/17 16:00 99.0 91 18 92/53 96 Room Air 06/30/17 16:00 80 06/30/17 14:11 87 82/48 06/30/17 12:35 89/51 06/30/17 12:00 97.1 85 20 83/44 97 Room Air 06/30/17 12:00 83 Intake and Output 06/30/17 07/01/17 19:00 07:00 Intake Total 950 ml Output Total 200 ml Balance 950 ml -200 ml Intake Oral 950 ml Output Urine Total 200 ml # Voids 1 1 # Bowel Movements 3 Objective General Appearance: no acute distress, bedridden, awake, alert, responsive female HEENT: normocephalic, atraumatic, anicteric, mucous membranes moist Respiratory/Chest: lungs clear, no respiratory distress Cardiovascular: normal rate - SR-ST on tele , no JVD Abdomen: normal bowel sounds, soft, non tender Extremities: no edema Neurologic/Psychiatric: abnormal gait, alert, responsive, other - tremors vega hands Laboratory Tests 07/01/17 04:45: White Blood Count 4.5L, Red Blood Count 3.69L, Hemoglobin 11.4L, Hematocrit 34.5L, Mean Corpuscular Volume 94, Mean Corpuscular Hemoglobin 30.9, Mean Corpuscular Hemoglobin Concent 33.0, Red Cell Distribution Width 13.7, Platelet Count 226, Mean Platelet Volume 6.8, Neutrophils (%) (Auto) 42.7L, Lymphocytes ( %) (Auto) 40.2, Monocytes (%) (Auto) 10.3H, Eosinophils (%) (Auto) 5.7H, Basophils (%) (Auto) 1.2, Sodium Level 139, Potassium Level 4.2, Chloride Level 107, Carbon Dioxide Level 29, Anion Gap 3L, Blood Urea Nitrogen 26H, Creatinine 0.7, Estimat Glomerular Filtration Rate > 60, Glucose Level 82, Calcium Level 8.5 Current Medications Medications (Trade) Dose Ordered Sig/Alma Route PRN Reason Start Time Stop Time Status Last Admin Dose Admin Acetaminophen (Tylenol) 650 mg Q4H PRN ORAL FEVER 06/30/17 14:45 07/29/17 14:44 06/30/17 21:28 Albuterol/ Ipratropium (Albuterol/ Ipratropium) 3 ml Q4H PRN HHN Shortness of Breath 06/30/17 14:45 07/03/17 14:44 Aspirin (ASA) 162 mg DAILY ORAL 07/01/17 09:00 07/28/17 08:59 07/01/17 08:28 Carbidopa/Levodopa (Sinemet 25/100) 1 tab THREE TIMES A DAY ORAL 06/30/17 18:00 07/28/17 17:59 07/01/17 08:28 Cyclobenzaprine HCl (Flexeril) 10 mg THREE TIMES A DAY ORAL 06/30/17 18:00 07/28/17 15:29 2/4/18 08:36 Diltiazem HCl (Cardizem) 10 mg Q1H PRN IV heart rate more than 120 06/30/17 14:30 07/28/17 14:29 Enalaprilat (Vasotec) 2.5 mg Q6H PRN IV SBP > 160 06/30/17 15:45 07/29/17 21:43 Heparin Sodium (Porcine) (Heparin 5000 units/ml) 5,000 units EVERY 12 HOURS SUBQ 06/30/17 21:00 07/28/17 08:59 07/01/17 08:35 Morphine Sulfate (Morphine Sulfate) 2 mg Q4H PRN IVP severe Pain (Pain Scale 7-10) 06/30/17 14:30 07/06/17 14:29 Multivitamins (Multivitamins) 1 tab DAILY ORAL 07/01/17 09:00 07/29/17 08:59 07/01/17 08:28 Nitroglycerin (Ntg) 0.4 mg Q5MIN PRN SL Prn Chest Pain 06/30/17 14:30 07/30/17 14:29 Ondansetron HCl (Zofran) 4 mg Q6H PRN IVP Nausea & Vomiting 06/30/17 14:30 07/29/17 14:29 Polyethylene Glycol (Miralax) 17 gm DAILYPRN PRN ORAL Constipation 06/30/17 14:30 07/29/17 14:29 Temazepam (Restoril) 15 mg HSPRN PRN ORAL Insomnia 06/30/17 14:30 07/06/17 14:29 Andreia Richardson NP (Vanchtein) Jul 01, 2017 11:26
[2017-07-01 11:53] VITALS: BP 90/51
--- NOTE | 2017-07-01 12:04 | Diagnostic Imaging Report ---
Clinical Indication: Chest pain, shortness of breath Technique: Spiral acquisitions obtained through the chest. No IV contrast utilized, for referring physician request. Multiplanar reconstructions generated. Total dose length product 475.2 mGycm. CTDIvol(s) 13.94 mGy. Dose reduction achieved using automated exposure control Comparison: none Findings: Area of atelectasis scarring is seen in the right middle lobe. There is some posterior dependent atelectasis in the right lower lobe. There is some reticular opacity in the right upper lobe adjacent to the peripheral major fissure which most likely reflects scarring. The left lung is largely clear except for minimal posterior dependent atelectasis and possibly some posterior medial basilar scarring. No infiltrates, effusions, nodules, or congestion demonstrated. There is diffuse edema of the subcutaneous and mediastinal fat. The heart size is normal. No pericardial effusion. No definite mediastinal or hilar mass or adenopathy. No axillary or chest wall mass or adenopathy. The esophagus is unremarkable. There is a fracture deformity of the mid sternal body. This is displaced by about one bone width and demonstrates a persistent fracture line but abundant surrounding callus. The remainder of the bones are unremarkable. The included upper abdominal anatomy is remarkable for an incompletely visualized 4.2 x 2.5 cm low-attenuation right lobe liver lesion which demonstrates nonspecific soft tissue attenuation. A second 4 cm lesion is seen inferior to this. There are some smaller hepatic cysts as well as subcentimeter low-attenuation liver lesions which are too small to characterize. Impression: No acute pulmonary pathology. Mild chronic appearing changes as described Multiple soft tissue attenuation liver lesions. These are nonspecific but concerning for multifocal neoplasm. Recommend contrast CT for further evaluation if this has not been worked up previously Liver cysts and other subcentimeter low-attenuation liver lesions which are too small to characterize incidentally noted Subacute or old but incompletely united displaced midsternal fracture Diffuse edema of the subcutaneous, abdominal, and mediastinal fat The CT scanner at [facility] is accredited by the [employer] and the scans are performed using protocols designed to limit radiation exposure to as low as reasonably achievable to attain images of sufficient resolution adequate for diagnostic evaluation.
[2017-07-01] MEDS ORDERED: Albuterol/Ipratropium 3ml neb HHN PRN (14:45)
--- NOTE | 2017-07-01 15:19 | Internal Med Progress Note ---
Subjective Date of Service: Jul 01, 2017 Physician Name Mine Spivey Attending Physician Robin Chow MD Current Medications Medications (Trade) Dose Ordered Sig/Alma Route PRN Reason Start Time Stop Time Status Last Admin Dose Admin Acetaminophen (Tylenol) 650 mg Q4H PRN ORAL FEVER 06/30/17 14:45 07/29/17 14:44 06/30/17 21:28 Albuterol/ Ipratropium (Albuterol/ Ipratropium) 3 ml Q4H PRN HHN Shortness of Breath 07/01/17 14:45 07/04/17 23:59 Aspirin (ASA) 162 mg DAILY ORAL 07/01/17 09:00 07/28/17 08:59 07/01/17 08:28 Carbidopa/Levodopa (Sinemet 25/100) 1 tab THREE TIMES A DAY ORAL 06/30/17 18:00 07/28/17 17:59 07/01/17 13:47 Cyclobenzaprine HCl (Flexeril) 10 mg THREE TIMES A DAY ORAL 06/30/17 18:00 07/28/17 15:29 07/01/17 13:47 Diltiazem HCl (Cardizem) 10 mg Q1H PRN IV heart rate more than 120 06/30/17 14:30 07/28/17 14:29 Enalaprilat (Vasotec) 2.5 mg Q6H PRN IV SBP > 160 06/30/17 15:45 07/29/17 21:43 Heparin Sodium (Porcine) (Heparin 5000 units/ml) 5,000 units EVERY 12 HOURS SUBQ 06/30/17 21:00 07/28/17 08:59 07/01/17 08:35 Midodrine (Pro-Amatine) 2.5 mg THREE TIMES A DAY ORAL 07/01/17 13:00 07/31/17 12:59 07/01/17 13:47 Morphine Sulfate (Morphine Sulfate) 2 mg Q4H PRN IVP severe Pain (Pain Scale 7-10) 06/30/17 14:30 07/06/17 14:29 Multivitamins (Multivitamins) 1 tab DAILY ORAL 07/01/17 09:00 07/29/17 08:59 07/01/17 08:28 Nitroglycerin (Ntg) 0.4 mg Q5MIN PRN SL Prn Chest Pain 06/30/17 14:30 07/30/17 14:29 Ondansetron HCl (Zofran) 4 mg Q6H PRN IVP Nausea & Vomiting 06/30/17 14:30 07/29/17 14:29 Polyethylene Glycol (Miralax) 17 gm DAILYPRN PRN ORAL Constipation 06/30/17 14:30 07/29/17 14:29 Temazepam (Restoril) 15 mg HSPRN PRN ORAL Insomnia 06/30/17 14:30 07/06/17 14:29 Allergies: Coded Allergies: No Known Allergies (Unverified , 06/27/17) Subjective 67 YO F admitted with chest pain and tremors. [facility]. Cover for Int Med-Dr Chow Objective Last Vital Signs Date Time Temp Pulse Resp B/P (MAP) Pulse Ox O2 Delivery O2 Flow Rate FiO2 07/01/17 14:46 97.5 07/01/17 12:00 73 07/01/17 11:53 22 90/51 99 Room Air Laboratory Tests Test 07/01/17 04:45 White Blood Count 4.5 K/UL (4.8-10.8) L Red Blood Count 3.69 M/UL (4.20-5.40) L Hemoglobin 11.4 G/DL (12.0-16.0) L Hematocrit 34.5 % (37.0-47.0) L Mean Corpuscular Volume 94 FL (80-99) Mean Corpuscular Hemoglobin 30.9 PG (27.0-31.0) Mean Corpuscular Hemoglobin Concent 33.0 G/DL (32.0-36.0) Red Cell Distribution Width 13.7 % (11.6-14.8) Platelet Count 226 K/UL (150-450) Mean Platelet Volume 6.8 FL (6.5-10.1) Neutrophils (%) (Auto) 42.7 % (45.0-75.0) L Lymphocytes (%) (Auto) 40.2 % (20.0-45.0) Monocytes (%) (Auto) 10.3 % (1.0-10.0) H Eosinophils (%) (Auto) 5.7 % (0.0-3.0) H Basophils (%) (Auto) 1.2 % (0.0-2.0) Sodium Level 139 MMOL/L (136-145) Potassium Level 4.2 MMOL/L (3.5-5.1) Chloride Level 107 MMOL/L (98-107) Carbon Dioxide Level 29 MMOL/L (21-32) Anion Gap 3 mmol/L (5-15) L Blood Urea Nitrogen 26 mg/dL (7-18) H Creatinine 0.7 MG/DL (0.55-1.30) Estimat Glomerular Filtration Rate > 60 mL/min (>60) Glucose Level 82 MG/DL (74-106) Calcium Level 8.5 MG/DL (8.5-10.1) Intake and Output 06/30/17 07/01/17 19:00 07:00 Intake Total 950 ml Output Total 200 ml Balance 950 ml -200 ml Intake Oral 950 ml Output Urine Total 200 ml # Voids 1 1 # Bowel Movements 3 Objective General Appearance: WD/WN, no apparent distress, alert EENT: PERRL/EOMI, normal ENT inspection Neck: non-tender, normal alignment, supple, normal inspection Cardiovascular: normal peripheral pulses, normal rate, regular rhythm, no gallop/murmur, no JVD Respiratory/Chest: chest wall non-tender, lungs clear, normal breath sounds, no respiratory distress, no accessory muscle use, respiratory distress Abdomen: normal bowel sounds, non tender, soft, no organomegaly, no mass Extremities: normal range of motion, non-tender, normal inspection 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 Cont sinemet (2) Tremor (3) HTN (hypertension) Assessment & Plan: Currently hypotensive; Hold vasotec and cardizem (4) Chest pain Assessment & Plan: See Cardiology note. (5) Elevated troponin Assessment & Plan: See cardiology note. MINE SPIVEY Jul 01, 2017 15:19
[2017-07-01 16:00] VITALS: BP 93/59
--- NOTE | 2017-07-01 17:08 | Cardiology Report ---
APPROVED REPORT EKG Measurement Heart [id number] MA [id number] Normal sinus rhythm Possible Left atrial enlargement Low voltage QRS Cannot rule out Anterior infarct, age undetermined Incomplete RBBB Abnormal ECG
[2017-07-01] MEDS ORDERED: NS 275ml ONE (17:22)
[2017-07-01 20:00] VITALS: BP 90/54
[2017-07-02] VITALS: BP 92/59
[2017-07-02 04:00] VITALS: BP 91/54
[2017-07-02 04:14] LABS: ANION GAP 2 mmol/L (5-15); BLOOD UREA NITROGEN 19 mg/dL (7-18); CALCIUM 8.6 MG/DL (8.5-10.1); CARBON DIOXIDE 32 MMOL/L (21-32); CHLORIDE 105 MMOL/L (98-107); CREATININE 0.6 MG/DL (0.55-1.30); POTASSIUM 4.1 MMOL/L (3.5-5.1); SODIUM 139 MMOL/L (136-145)
[2017-07-02 04:17] LABS: BASOPHILS % (AUTO) 1.8 % (0.0-2.0); EOSINOPHILS % (AUTO) 6.3 % (0.0-3.0); HEMATOCRIT 34.2 % (37.0-47.0); HEMOGLOBIN 11.4 G/DL (12.0-16.0); LYMPHOCYTES % (AUTO) 44.9 % (20.0-45.0); MEAN CORPUSCULAR VOLUME 93 FL (80-99); MONOCYTES % (AUTO) 11.9 % (1.0-10.0); NEUTROPHILS % (AUTO) 35.1 % (45.0-75.0); PLATELET COUNT 222 K/UL (150-450); RED BLOOD COUNT 3.66 M/UL (4.20-5.40); RED CELL DISTRIBUTION WIDTH 13.5 % (11.6-14.8); WHITE BLOOD COUNT 4.1 K/UL (4.8-10.8)
[2017-07-02 08:00] VITALS: BP 123/97
[2017-07-02] MEDS: Cyclobenzaprine 10mg Tab ORAL SCH ×3 (08:59→18:36)
[2017-07-02] MEDS: Aspirin Baby 81mg ORAL SCH (08:59)
[2017-07-02] MEDS: Levodopa/Carbidopa 25/100 tab ORAL SCH ×3 (08:59→18:35)
[2017-07-02] MEDS: Heparin 5000 units/ml inj SUBQ SCH ×2 (09:00→20:52)
--- NOTE | 2017-07-02 10:54 | Cardiology Report ---
APPROVED REPORT EXAM: Two-dimensional and M-mode echocardiogram with Doppler and color Doppler. INDICATION LV FUNCTION M-Mode DIMENSIONS IVSd1.3 (0.7-1.1cm)Left Atrium (MM)2.8 (1.6-4.0cm) LVDd3.7 (3.5-5.6cm)Aortic Root3.6 (2.0-3.7cm) PWd1.1 (0.7-1.1cm)Aortic Cusp Exc.2.2 (1.5-2.0cm) IVSs1.6 cm LVDs2.4 (2.5-4.0cm) PWs1.5 cm Normal left ventricular chamber size, systolic function and wall motion. Left ventricular ejection fraction estimated to be 65-70 %. No evidence of left ventricular hypertrophy. No evidence of pericardial effusion. All other cardiac chamber sizes are within normal limits. Focal aortic valve sclerosis with adequate cusp excursion. Thickened mitral valve leaflets with normal excursion. Mitral annulus and aortic root calcification. Normal pulmonic valve structure. Normal tricuspid valve structure. IVC dilated at size 2.3 cm without physiologic collapse . A color flow and spectral Doppler study was performed and revealed: No aortic regurgitation. Trace mitral regurgitation. Mitral diastolic velocities suggest reduced left ventricular relaxation c/w mild LV diastolic dysfunction (Grade I ). Mild tricuspid regurgitation. Tricuspid systolic velocities suggests peak right ventricular systolic pressure of 32 mmHg,consistent with mild pulmonary hypertension. No Pulmonic regurgitation present.
[2017-07-02 12:00] VITALS: BP 102/69
--- NOTE | 2017-07-02 12:26 | Pulmonology Progress Note ---
Assessment/Plan Problems: (1) Atypical Parkinson syndrom, advanced (2) Chest pain Assessment/Plan CT chest showed questionable mass, will get CT chest with contrast cardiology input appreciated neurology consult appreciated asymptoamtic now med/surg dc planning if CT scan is negative. Subjective ROS Limited/Unobtainable: No Interval Events: comfortable, no new complains Constitutional: Reports: no symptoms HEENT: Repors: no symptoms Allergies: Coded Allergies: No Known Allergies (Unverified , 06/27/17) Objective Last 24 Hour Vital Signs Date Time Temp Pulse Resp B/P (MAP) Pulse Ox O2 Delivery O2 Flow Rate FiO2 07/02/17 08:00 97.9 120 19 123/97 96 Room Air 07/02/17 08:00 78 07/02/17 07:39 45 16 Room Air 21 07/02/17 04:00 79 07/02/17 04:00 97.2 71 20 91/54 98 Room Air 07/02/17 00:00 97.0 90 18 92/59 97 Room Air 07/02/17 00:00 74 07/01/17 21:05 82 18 Room Air 07/01/17 20:00 78 07/01/17 20:00 97.2 81 22 90/54 96 Room Air 07/01/17 19:15 97.7 07/01/17 16:27 72 07/01/17 16:00 97.7 85 22 93/59 99 Room Air Intake and Output 07/01/17 07/02/17 19:00 07:00 Intake Total 700 ml Output Total 250 ml Balance 700 ml -250 ml Intake Oral 700 ml Output Urine Total 250 ml # Voids 3 1 # Bowel Movements 3 General Appearance: cachetic HEENT: normocephalic Respiratory/Chest: chest wall non-tender, lungs clear Cardiovascular: normal peripheral pulses, normal rate Abdomen: normal bowel sounds, soft, non tender, no organomegaly Genitourinary: normal external genitalia Extremities: no cyanosis Skin: no rash 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, normal mood/affect Laboratory Tests 07/02/17 03:15: White Blood Count 4.1L, Red Blood Count 3.66L, Hemoglobin 11.4L, Hematocrit 34.2L, Mean Corpuscular Volume 93, Mean Corpuscular Hemoglobin 31.1H, Mean Corpuscular Hemoglobin Concent 33.3, Red Cell Distribution Width 13.5, Platelet Count 222, Mean Platelet Volume 6.6, Neutrophils (%) (Auto) 35.1L, Lymphocytes ( %) (Auto) 44.9, Monocytes (%) (Auto) 11.9H, Eosinophils (%) (Auto) 6.3H, Basophils (%) (Auto) 1.8, Sodium Level 139, Potassium Level 4.1, Chloride Level 105, Carbon Dioxide Level 32, Anion Gap 2L, Blood Urea Nitrogen 19H, Creatinine 0.6, Estimat Glomerular Filtration Rate > 60, Glucose Level 94, Calcium Level 8.6 Current Medications Medications (Trade) Dose Ordered Sig/Alma Route PRN Reason Start Time Stop Time Status Last Admin Dose Admin Acetaminophen (Tylenol) 650 mg Q4H PRN ORAL FEVER 06/30/17 14:45 07/29/17 14:44 06/30/17 21:28 Albuterol/ Ipratropium (Albuterol/ Ipratropium) 3 ml Q4H PRN HHN Shortness of Breath 07/01/17 14:45 07/04/17 23:59 Aspirin (ASA) 162 mg DAILY ORAL 07/01/17 09:00 07/28/17 08:59 07/02/17 08:59 Carbidopa/Levodopa (Sinemet 25/100) 1 tab THREE TIMES A DAY ORAL 06/30/17 18:00 07/28/17 17:59 07/02/17 08:59 Cyclobenzaprine HCl (Flexeril) 10 mg THREE TIMES A DAY ORAL 06/30/17 18:00 07/28/17 15:29 07/02/17 08:59 Diltiazem HCl (Cardizem) 10 mg Q1H PRN IV heart rate more than 120 06/30/17 14:30 07/28/17 14:29 Enalaprilat (Vasotec) 2.5 mg Q6H PRN IV SBP > 160 06/30/17 15:45 07/29/17 21:43 Heparin Sodium (Porcine) (Heparin 5000 units/ml) 5,000 units EVERY 12 HOURS SUBQ 06/30/17 21:00 07/28/17 08:59 07/02/17 09:00 Midodrine (Pro-Amatine) 2.5 mg THREE TIMES A DAY ORAL 07/01/17 13:00 07/31/17 12:59 07/01/17 18:16 Morphine Sulfate (Morphine Sulfate) 2 mg Q4H PRN IVP severe Pain (Pain Scale 7-10) 06/30/17 14:30 07/06/17 14:29 Multivitamins (Multivitamins) 1 tab DAILY ORAL 07/01/17 09:00 07/29/17 08:59 07/02/17 08:59 Nitroglycerin (Ntg) 0.4 mg Q5MIN PRN SL Prn Chest Pain 06/30/17 14:30 07/30/17 14:29 Ondansetron HCl (Zofran) 4 mg Q6H PRN IVP Nausea & Vomiting 06/30/17 14:30 07/29/17 14:29 Polyethylene Glycol (Miralax) 17 gm DAILYPRN PRN ORAL Constipation 06/30/17 14:30 07/29/17 14:29 Temazepam (Restoril) 15 mg HSPRN PRN ORAL Insomnia 06/30/17 14:30 07/06/17 14:29 LUKE MARTE Jul 02, 2017 12:26
--- NOTE | 2017-07-02 12:39 | Internal Med Progress Note ---
Subjective Date of Service: Jul 02, 2017 Physician Name Mine Nichole Attending Physician Robin Chow MD Current Medications Medications (Trade) Dose Ordered Sig/Alma Route PRN Reason Start Time Stop Time Status Last Admin Dose Admin Acetaminophen (Tylenol) 650 mg Q4H PRN ORAL FEVER 06/30/17 14:45 07/29/17 14:44 06/30/17 21:28 Albuterol/ Ipratropium (Albuterol/ Ipratropium) 3 ml Q4H PRN HHN Shortness of Breath 07/01/17 14:45 07/04/17 23:59 Aspirin (ASA) 162 mg DAILY ORAL 07/01/17 09:00 07/28/17 08:59 07/02/17 08:59 Carbidopa/Levodopa (Sinemet 25/100) 1 tab THREE TIMES A DAY ORAL 06/30/17 18:00 07/28/17 17:59 07/02/17 08:59 Cyclobenzaprine HCl (Flexeril) 10 mg THREE TIMES A DAY ORAL 06/30/17 18:00 07/28/17 15:29 07/02/17 08:59 Diltiazem HCl (Cardizem) 10 mg Q1H PRN IV heart rate more than 120 06/30/17 14:30 07/28/17 14:29 Enalaprilat (Vasotec) 2.5 mg Q6H PRN IV SBP > 160 06/30/17 15:45 07/29/17 21:43 Heparin Sodium (Porcine) (Heparin 5000 units/ml) 5,000 units EVERY 12 HOURS SUBQ 06/30/17 21:00 07/28/17 08:59 07/02/17 09:00 Midodrine (Pro-Amatine) 2.5 mg THREE TIMES A DAY ORAL 07/01/17 13:00 07/31/17 12:59 07/01/17 18:16 Morphine Sulfate (Morphine Sulfate) 2 mg Q4H PRN IVP severe Pain (Pain Scale 7-10) 06/30/17 14:30 07/06/17 14:29 Multivitamins (Multivitamins) 1 tab DAILY ORAL 07/01/17 09:00 07/29/17 08:59 07/02/17 08:59 Nitroglycerin (Ntg) 0.4 mg Q5MIN PRN SL Prn Chest Pain 06/30/17 14:30 07/30/17 14:29 Ondansetron HCl (Zofran) 4 mg Q6H PRN IVP Nausea & Vomiting 06/30/17 14:30 07/29/17 14:29 Polyethylene Glycol (Miralax) 17 gm DAILYPRN PRN ORAL Constipation 06/30/17 14:30 07/29/17 14:29 Temazepam (Restoril) 15 mg HSPRN PRN ORAL Insomnia 06/30/17 14:30 07/06/17 14:29 Allergies: Coded Allergies: No Known Allergies (Unverified , 06/27/17) ROS Limited/Unobtainable: No Constitutional: Reports: no symptoms HEENT: Reports: no symptoms Cardiovascular: Reports: no symptoms Respiratory: Reports: no symptoms Gastrointestinal/Abdominal: Reports: no symptoms Genitourinary: Reports: no symptoms Neurologic/Psychiatric: Reports: no symptoms Subjective 67 YO F admitted with chest pain and tremors. [place]. Cover for Int Med-Dr Chow Objective Last Vital Signs Date Time Temp Pulse Resp B/P (MAP) Pulse Ox O2 Delivery O2 Flow Rate FiO2 07/02/17 08:00 97.9 120 19 123/97 96 Room Air 07/02/17 07:39 21 Laboratory Tests Test 07/02/17 03:15 White Blood Count 4.1 K/UL (4.8-10.8) L Red Blood Count 3.66 M/UL (4.20-5.40) L Hemoglobin 11.4 G/DL (12.0-16.0) L Hematocrit 34.2 % (37.0-47.0) L Mean Corpuscular Volume 93 FL (80-99) Mean Corpuscular Hemoglobin 31.1 PG (27.0-31.0) H Mean Corpuscular Hemoglobin Concent 33.3 G/DL (32.0-36.0) Red Cell Distribution Width 13.5 % (11.6-14.8) Platelet Count 222 K/UL (150-450) Mean Platelet Volume 6.6 FL (6.5-10.1) Neutrophils (%) (Auto) 35.1 % (45.0-75.0) L Lymphocytes (%) (Auto) 44.9 % (20.0-45.0) Monocytes (%) (Auto) 11.9 % (1.0-10.0) H Eosinophils (%) (Auto) 6.3 % (0.0-3.0) H Basophils (%) (Auto) 1.8 % (0.0-2.0) Sodium Level 139 MMOL/L (136-145) Potassium Level 4.1 MMOL/L (3.5-5.1) Chloride Level 105 MMOL/L (98-107) Carbon Dioxide Level 32 MMOL/L (21-32) Anion Gap 2 mmol/L (5-15) L Blood Urea Nitrogen 19 mg/dL (7-18) H Creatinine 0.6 MG/DL (0.55-1.30) Estimat Glomerular Filtration Rate > 60 mL/min (>60) Glucose Level 94 MG/DL (74-106) Calcium Level 8.6 MG/DL (8.5-10.1) Intake and Output 07/01/17 07/02/17 19:00 07:00 Intake Total 700 ml Output Total 250 ml Balance 700 ml -250 ml Intake Oral 700 ml Output Urine Total 250 ml # Voids 3 1 # Bowel Movements 3 Objective General Appearance: WD/WN, no apparent distress, alert EENT: PERRL/EOMI, normal ENT inspection Neck: non-tender, normal alignment, supple, normal inspection Cardiovascular: normal peripheral pulses, normal rate, regular rhythm, no gallop/murmur, no JVD Respiratory/Chest: chest wall non-tender, lungs clear, normal breath sounds, no respiratory distress, no accessory muscle use, respiratory distress Abdomen: normal bowel sounds, non tender, soft, no organomegaly, no mass Extremities: normal range of motion, non-tender, normal inspection 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 Cont sinemet (2) Tremor (3) HTN (hypertension) Assessment & Plan: Currently hypotensive; Hold vasotec and cardizem (4) Chest pain Assessment & Plan: See Cardiology note. (5) Elevated troponin Assessment & Plan: See cardiology note. (6) Fracture, sternum closed Status: progressing Assessment/Plan [facility] Jul 02, 2017 12:39
--- NOTE | 2017-07-02 12:46 | Diagnostic Imaging Report ---
Indication: Shortness of breath Technique: One view of the chest Comparison: 06/27/2017 Findings: Lungs and pleural spaces are clear. The heart size is normal. No significant interim change Impression: No acute process
[2017-07-02 16:00] VITALS: BP 106/58
[2017-07-02] MEDS ORDERED: Nitroglycerin Subl 0.4mg tab SL PRN (17:45)
--- NOTE | 2017-07-02 18:04 | Neurology Progress Note ---
Interim History Interim History ROS Limited/Unobtainable: No Complaints: tremor BUE/inability to ambulate Events: no change Objective Physical Exam Last Vital Signs Date Time Temp Pulse Resp B/P (MAP) Pulse Ox O2 Delivery O2 Flow Rate FiO2 07/02/17 16:00 98.2 83 21 106/58 96 Room Air 07/02/17 07:39 21 Laboratory Tests Test 07/02/17 03:15 White Blood Count 4.1 K/UL (4.8-10.8) L Red Blood Count 3.66 M/UL (4.20-5.40) L Hemoglobin 11.4 G/DL (12.0-16.0) L Hematocrit 34.2 % (37.0-47.0) L Mean Corpuscular Volume 93 FL (80-99) Mean Corpuscular Hemoglobin 31.1 PG (27.0-31.0) H Mean Corpuscular Hemoglobin Concent 33.3 G/DL (32.0-36.0) Red Cell Distribution Width 13.5 % (11.6-14.8) Platelet Count 222 K/UL (150-450) Mean Platelet Volume 6.6 FL (6.5-10.1) Neutrophils (%) (Auto) 35.1 % (45.0-75.0) L Lymphocytes (%) (Auto) 44.9 % (20.0-45.0) Monocytes (%) (Auto) 11.9 % (1.0-10.0) H Eosinophils (%) (Auto) 6.3 % (0.0-3.0) H Basophils (%) (Auto) 1.8 % (0.0-2.0) Sodium Level 139 MMOL/L (136-145) Potassium Level 4.1 MMOL/L (3.5-5.1) Chloride Level 105 MMOL/L (98-107) Carbon Dioxide Level 32 MMOL/L (21-32) Anion Gap 2 mmol/L (5-15) L Blood Urea Nitrogen 19 mg/dL (7-18) H Creatinine 0.6 MG/DL (0.55-1.30) Estimat Glomerular Filtration Rate > 60 mL/min (>60) Glucose Level 94 MG/DL (74-106) Calcium Level 8.6 MG/DL (8.5-10.1) General: other - cachectic Head: normocophalic, atraumatic Neck: other - rgrid Neurologic Exam Mental Status: awake, alert, oriented x4, good mathematical skills, normal recent memory, normal remote memory, preserved visuospatial function, other - forgetful Speech: normal speech, no dysarthia Language: normal language, no aphasia Cranial Nerve II: fundus normal, visual watson, no papilledema Cranial Nerves III, IV, : PERRLA, EOMI, pupils Cranial Nerve V: normal facial sensations, temporales function normal, masseters function normal, pterygoids function normal Cranial Nerve VII: no facial asymmetry, normal facial expressions, other - masked Cranial Nerve VIII: normal hearing, no nystagmus Cranial Nerve IX: normal palate elevation, gag response Cranial Nerve X: no voice hoarseness Cranial Nerve XI: SCM symmetric, trapezii function normal Cranial Nerve XII: tongue midline, no tongue atrophy/fasciculations Motor System: other - generalised rigidity, resting hand tremor, extended legs Sensory: normal pinprick Coordination: other - clumsy Deep Tendon Reflexes: 1+ bicep (L), 1+ bicep (R), 1+ tricep (L), 1+ tricep (R) , 1+ brachioradialis (L), 1+ brachioradialis (R), 1+ knee (L), 1+ knee (R), 1+ ankle (L), 1+ ankle (R) Reflexes: mute plantar (L), mute plantar (R) Impression/Recommendations Problems: (1) Atypical Parkinson syndrom, advanced Status: progressing Recommendations #[id number] cont present tx neuro stable f/u rehab f/u OP neuro ropinirol 0.25 ROBERT Murrieta Jul 02, 2017 18:03
[2017-07-02] MEDS ORDERED: Enalaprilat 2.5mg/2ml Inj IV PRN (18:30)
[2017-07-02] MEDS ORDERED: Albuterol/Ipratropium 3ml neb HHN PRN (18:30)
[2017-07-02] MEDS ORDERED: Miralax 17gm pkt ORAL PRN (18:30)
[2017-07-02] MEDS ORDERED: dilTIAZem HCl 25mg/5ml Inj IV PRN (18:30)
[2017-07-02] MEDS ORDERED: Morphine Sulfate 4mg/ml Inj IVP PRN (18:30)
[2017-07-02 20:00] VITALS: BP 100/66
[2017-07-02] MEDS: rOPINIRole 0.25mg tab ORAL SCH (20:51)
[2017-07-03] VITALS (7 sets, daily range): BP systolic 72–113; BP diastolic 43–83
[2017-07-03] MEDS ORDERED: NS 250 ML IVPB ONE (00:30)
[2017-07-03] MEDS: Aspirin Baby 81mg ORAL SCH (08:22)
[2017-07-03] MEDS: Levodopa/Carbidopa 25/100 tab ORAL SCH ×3 (08:22→17:23)
[2017-07-03] MEDS: rOPINIRole 0.25mg tab ORAL SCH ×3 (08:23→17:24)
[2017-07-03] MEDS: Cyclobenzaprine 10mg Tab ORAL SCH ×3 (08:23→17:23)
[2017-07-03] MEDS: Heparin 5000 units/ml inj SUBQ SCH ×2 (08:27→20:40)
[2017-07-03 08:48] LABS: BASOPHILS % (AUTO) 1.6 % (0.0-2.0); EOSINOPHILS % (AUTO) 6.3 % (0.0-3.0); HEMATOCRIT 35.7 % (37.0-47.0); HEMOGLOBIN 11.9 G/DL (12.0-16.0); LYMPHOCYTES % (AUTO) 36.3 % (20.0-45.0); MEAN CORPUSCULAR VOLUME 94 FL (80-99); MONOCYTES % (AUTO) 12.6 % (1.0-10.0); NEUTROPHILS % (AUTO) 43.2 % (45.0-75.0); PLATELET COUNT 235 K/UL (150-450); RED BLOOD COUNT 3.79 M/UL (4.20-5.40); RED CELL DISTRIBUTION WIDTH 13.5 % (11.6-14.8); WHITE BLOOD COUNT 3.9 K/UL (4.8-10.8)
[2017-07-03 09:07] LABS: ANION GAP 4 mmol/L (5-15); BLOOD UREA NITROGEN 12 mg/dL (7-18); CALCIUM 8.8 MG/DL (8.5-10.1); CARBON DIOXIDE 30 MMOL/L (21-32); CHLORIDE 105 MMOL/L (98-107); CREATININE 0.6 MG/DL (0.55-1.30); POTASSIUM 4.2 MMOL/L (3.5-5.1); SODIUM 139 MMOL/L (136-145)
--- NOTE | 2017-07-03 11:38 | Diagnostic Imaging Report ---
APPROVED REPORT CPT Code: 98969 Present Symptoms Comments: R/O DVT BILATERAL: Imaging reveals a patent deep venous system bilaterally. There is no evidence of thrombus within the femoral, popliteal or tibial segments. The greater saphenous veins are also within normal limits. Doppler indicates normal spontaneous flow within these segments.
--- NOTE | 2017-07-03 15:11 | Diagnostic Imaging Report ---
Clinical Indication: Chest pain Technique: IV administration nonionic contrast. Spiral acquisition obtained through the chest. Multiplanar reconstructions generated. Total dose length product 479.87 mGycm. CTDIvol(s) 12.92 mGy. Dose reduction achieved using automated exposure control Comparison: July 01, 2017 noncontrast study Findings: Band of atelectasis or scarring and some small nodular opacities are seen again in the right middle lobe. There is some peripheral reticular opacity in the posterior lateral right upper lobe again demonstrated. Some linear atelectasis is seen in the posterior inferior right lower lobe, not evident previously. Minimal scarring is seen in the posterior left lower lobe. No focal infiltrates. No effusions. The heart size is borderline enlarged with right atrial and right ventricular dilatation. No mediastinal or hilar mass or adenopathy. There is generalized edema of the mediastinal and subcutaneous fat. No axillary or chest wall mass or adenopathy. Again demonstrated is a multilobulated low-attenuation mass in the right hepatic lobe. On the current postcontrast exam this demonstrates some peripheral nodular enhancement. There are also hepatic cysts again demonstrated. Other subcentimeter low-attenuation lesions within the liver are too small to characterize, most likely benign simple cysts or bile hamartomas Impression: No acute chest pathology Unchanged chronic appearing findings as described Cardiomegaly, also previously described Right lobe liver loculated mass versus multiple masses again demonstrated. A focus of peripheral nodular enhancement raises the possibility that this could represent a hemangioma. Recommend dedicated liver CT with hemangioma protocol Hepatic cysts and subcentimeter low-attenuation liver lesions too small to characterize, most likely benign simple cysts. No further follow-up necessary The CT scanner at [facility] is accredited by the [employer] and the scans are performed using protocols designed to limit radiation exposure to as low as reasonably achievable to attain images of sufficient resolution adequate for diagnostic evaluation.
--- NOTE | 2017-07-03 16:10 | Cardiology Progress Note ---
Assessment/Plan Assessment/Plan cp atypical tender to palp sternal fx by ct parkinsonism hepatic mass? all trop neg ct confiremd fx of sternuam ekg neg trop neg duplex neg echo prelim neg chest wall appear to be tender to palp c/w fracture of sternum to d/w dr mcdaniel regarding hepatic abn [facility] summary : 1.~~~Acute hypercapnic respiratory failure, status post intubation and extubation. 2.~~~Severe respiratory acidosis. 3.~~~Altered mental status due to toxic metabolic encephalopathy as a result of the hypoxemia. 4.~Pulseless electrical activity arrest with cardiopulmonary arrest. 5.~~~Acute influenza A infection with upper respiratory infection. 6.~~~Essential tremor. 7.~~~Hyperkalemia. 8.~~~Anxiety. Subjective Cardiovascular: Denies: chest pain, lightheadedness, palpitations Respiratory: Denies: shortness of breath Gastrointestinal/Abdominal: Denies: abdominal pain Genitourinary: Denies: burning Objective Last 24 Hour Vital Signs Date Time Temp Pulse Resp B/P (MAP) Pulse Ox O2 Delivery O2 Flow Rate FiO2 07/03/17 14:07 97.4 07/03/17 12:00 97.7 82 20 113/59 99 07/03/17 08:00 97.0 85 20 107/83 97 07/03/17 06:45 62 16 Room Air 21 07/03/17 04:00 97.4 76 20 96/60 99 07/03/17 00:30 71 85/47 07/03/17 00:00 97.0 71 20 72/43 99 07/02/17 20:00 97.9 86 20 100/66 98 General Appearance: alert Neck: supple Cardiovascular: normal rate, regular rhythm Respiratory/Chest: lungs clear, normal breath sounds Abdomen: normal bowel sounds, non tender, soft Extremities: no swelling Intake and Output 07/02/17 07/03/17 19:00 07:00 Intake Total 240 ml 250 ml Output Total 350 ml Balance -110 ml 250 ml Intake Oral 240 ml IV Total 250 ml Output Urine Total 350 ml # Voids 3 2 Laboratory Tests Test 07/03/17 08:00 White Blood Count 3.9 K/UL (4.8-10.8) L Red Blood Count 3.79 M/UL (4.20-5.40) L Hemoglobin 11.9 G/DL (12.0-16.0) L Hematocrit 35.7 % (37.0-47.0) L Mean Corpuscular Volume 94 FL (80-99) Mean Corpuscular Hemoglobin 31.3 PG (27.0-31.0) H Mean Corpuscular Hemoglobin Concent 33.3 G/DL (32.0-36.0) Red Cell Distribution Width 13.5 % (11.6-14.8) Platelet Count 235 K/UL (150-450) Mean Platelet Volume 6.8 FL (6.5-10.1) Neutrophils (%) (Auto) 43.2 % (45.0-75.0) L Lymphocytes (%) (Auto) 36.3 % (20.0-45.0) Monocytes (%) (Auto) 12.6 % (1.0-10.0) H Eosinophils (%) (Auto) 6.3 % (0.0-3.0) H Basophils (%) (Auto) 1.6 % (0.0-2.0) Sodium Level 139 MMOL/L (136-145) Potassium Level 4.2 MMOL/L (3.5-5.1) Chloride Level 105 MMOL/L (98-107) Carbon Dioxide Level 30 MMOL/L (21-32) Anion Gap 4 mmol/L (5-15) L Blood Urea Nitrogen 12 mg/dL (7-18) Creatinine 0.6 MG/DL (0.55-1.30) Estimat Glomerular Filtration Rate > 60 mL/min (>60) Glucose Level 85 MG/DL (74-106) Calcium Level 8.8 MG/DL (8.5-10.1) NELA KAUFMAN Jul 03, 2017 16:10
--- NOTE | 2017-07-03 18:09 | Internal Med Progress Note ---
Subjective Date of Service: Jul 03, 2017 Physician Name Jerome Nichole Attending Physician Robin Chow MD Current Medications Medications (Trade) Dose Ordered Sig/Alma Route PRN Reason Start Time Stop Time Status Last Admin Dose Admin Acetaminophen (Tylenol) 650 mg Q4H PRN ORAL FEVER (temp>100.5F) 07/02/17 18:45 07/29/17 14:44 Albuterol/ Ipratropium (Albuterol/ Ipratropium) 3 ml Q4H PRN HHN Shortness of Breath 07/02/17 18:30 07/04/17 18:29 Aspirin (ASA) 162 mg DAILY ORAL 07/03/17 09:00 07/28/17 08:59 07/03/17 08:22 Carbidopa/Levodopa (Sinemet 25/100) 1 tab THREE TIMES A DAY ORAL 07/02/17 18:30 07/28/17 18:29 07/03/17 17:23 Cyclobenzaprine HCl (Flexeril) 10 mg THREE TIMES A DAY ORAL 07/02/17 18:30 07/28/17 18:29 07/03/17 17:23 Enalaprilat (Vasotec) 2.5 mg Q6H PRN IV SBP > 160 07/02/17 18:30 07/29/17 18:29 Heparin Sodium (Porcine) (Heparin 5000 units/ml) 5,000 units EVERY 12 HOURS SUBQ 07/02/17 21:00 07/28/17 08:59 07/03/17 08:27 Midodrine (Pro-Amatine) 2.5 mg THREE TIMES A DAY ORAL 07/02/17 18:30 07/31/17 18:29 07/03/17 17:24 Morphine Sulfate (Morphine Sulfate) 2 mg Q4H PRN IVP severe Pain (Pain Scale 7-10) 07/02/17 18:30 07/06/17 14:29 Multivitamins (Multivitamins) 1 tab DAILY ORAL 07/03/17 09:00 07/29/17 08:59 07/03/17 08:23 Nitroglycerin (Ntg) 0.4 mg Q5MIN PRN SL Prn Chest Pain 07/02/17 17:45 07/30/17 14:29 Ondansetron HCl (Zofran) 4 mg Q6H PRN IVP Nausea & Vomiting 2/5/18 18:30 07/29/17 18:29 Polyethylene Glycol (Miralax) 17 gm DAILYPRN PRN ORAL Constipation 07/02/17 18:30 08/01/17 18:29 Ropinirole HCl (Requip) 0.25 mg THREE TIMES A DAY ORAL 07/02/17 20:00 08/01/17 19:59 07/03/17 17:24 Temazepam (Restoril) 15 mg HSPRN PRN ORAL Insomnia 07/02/17 18:30 07/09/17 18:29 Allergies: Coded Allergies: No Known Allergies (Unverified , 06/27/17) ROS Limited/Unobtainable: No HEENT: Reports: no symptoms Cardiovascular: Reports: no symptoms Respiratory: Reports: no symptoms Gastrointestinal/Abdominal: Reports: no symptoms Genitourinary: Reports: no symptoms Neurologic/Psychiatric: Reports: no symptoms Subjective 67 YO F admitted with chest pain and tremors. Await CT abdomen with hemangioma protocol. Cover for Int Med-Dr Chow Objective Last Vital Signs Date Time Temp Pulse Resp B/P (MAP) Pulse Ox O2 Delivery O2 Flow Rate FiO2 07/03/17 16:00 97.0 85 20 108/69 97 07/03/17 06:45 Room Air 21 Laboratory Tests Test 07/03/17 08:00 White Blood Count 3.9 K/UL (4.8-10.8) L Red Blood Count 3.79 M/UL (4.20-5.40) L Hemoglobin 11.9 G/DL (12.0-16.0) L Hematocrit 35.7 % (37.0-47.0) L Mean Corpuscular Volume 94 FL (80-99) Mean Corpuscular Hemoglobin 31.3 PG (27.0-31.0) H Mean Corpuscular Hemoglobin Concent 33.3 G/DL (32.0-36.0) Red Cell Distribution Width 13.5 % (11.6-14.8) Platelet Count 235 K/UL (150-450) Mean Platelet Volume 6.8 FL (6.5-10.1) Neutrophils (%) (Auto) 43.2 % (45.0-75.0) L Lymphocytes (%) (Auto) 36.3 % (20.0-45.0) Monocytes (%) (Auto) 12.6 % (1.0-10.0) H Eosinophils (%) (Auto) 6.3 % (0.0-3.0) H Basophils (%) (Auto) 1.6 % (0.0-2.0) Sodium Level 139 MMOL/L (136-145) Potassium Level 4.2 MMOL/L (3.5-5.1) Chloride Level 105 MMOL/L (98-107) Carbon Dioxide Level 30 MMOL/L (21-32) Anion Gap 4 mmol/L (5-15) L Blood Urea Nitrogen 12 mg/dL (7-18) Creatinine 0.6 MG/DL (0.55-1.30) Estimat Glomerular Filtration Rate > 60 mL/min (>60) Glucose Level 85 MG/DL (74-106) Calcium Level 8.8 MG/DL (8.5-10.1) Intake and Output 07/02/17 07/03/17 19:00 07:00 Intake Total 240 ml 250 ml Output Total 350 ml Balance -110 ml 250 ml Intake Oral 240 ml IV Total 250 ml Output Urine Total 350 ml # Voids 3 2 Objective General Appearance: WD/WN, no apparent distress, alert EENT: PERRL/EOMI, normal ENT inspection Neck: non-tender, normal alignment, supple, normal inspection Cardiovascular: normal peripheral pulses, normal rate, regular rhythm, no gallop/murmur, no JVD Respiratory/Chest: chest wall non-tender, lungs clear, normal breath sounds, no respiratory distress, no accessory muscle use, respiratory distress Abdomen: normal bowel sounds, non tender, soft, no organomegaly, no mass Extremities: normal range of motion, non-tender, normal inspection 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 Cont sinemet (2) Tremor (3) HTN (hypertension) Assessment & Plan: Currently hypotensive; Hold vasotec and cardizem (4) Chest pain Assessment & Plan: See Cardiology note. (5) Elevated troponin Assessment & Plan: See cardiology note. (6) Fracture, sternum closed (7) Liver mass Assessment & Plan: Await CT abdomen with hemiangioma protocol Status: progressing Assessment/Plan [facility] 2017 18:08
--- NOTE | 2017-07-03 18:26 | Pulmonology Progress Note ---
Assessment/Plan Problems: (1) Atypical Parkinson syndrom, advanced (2) Chest pain Assessment/Plan CT chest showed questionable mass, will get CT chest with contrast cardiology input appreciated neurology consult appreciated asymptoamtic now CT abdomen pending Right lobe liver loculated mass versus multiple masses again demonstrated. A focus of peripheral nodular enhancement raises the possibility that this could represent a hemangioma. Recommend dedicated liver CT with hemangioma protocol Subjective ROS Limited/Unobtainable: No Constitutional: Reports: no symptoms HEENT: Repors: no symptoms Allergies: Coded Allergies: No Known Allergies (Unverified , 06/27/17) Objective Last 24 Hour Vital Signs Date Time Temp Pulse Resp B/P (MAP) Pulse Ox O2 Delivery O2 Flow Rate FiO2 07/03/17 16:00 97.0 85 20 108/69 97 07/03/17 14:07 97.4 07/03/17 12:00 97.7 82 20 113/59 99 07/03/17 08:00 97.0 85 20 107/83 97 07/03/17 06:45 62 16 Room Air 21 07/03/17 04:00 97.4 76 20 96/60 99 07/03/17 00:30 71 85/47 07/03/17 00:00 97.0 71 20 72/43 99 07/02/17 20:00 97.9 86 20 100/66 98 Intake and Output 07/02/17 07/03/17 19:00 07:00 Intake Total 240 ml 250 ml Output Total 350 ml Balance -110 ml 250 ml Intake Oral 240 ml IV Total 250 ml Output Urine Total 350 ml # Voids 3 2 General Appearance: cachetic HEENT: normocephalic, atraumatic Respiratory/Chest: chest wall non-tender, lungs clear Breasts: no masses Cardiovascular: normal peripheral pulses, normal rate Abdomen: normal bowel sounds, soft, non tender Genitourinary: normal external genitalia Extremities: no cyanosis 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 Lymphatic: no neck adenopathy Laboratory Tests 07/03/17 08:00: White Blood Count 3.9L, Red Blood Count 3.79L, Hemoglobin 11.9L, Hematocrit 35.7L, Mean Corpuscular Volume 94, Mean Corpuscular Hemoglobin 31.3H, Mean Corpuscular Hemoglobin Concent 33.3, Red Cell Distribution Width 13.5, Platelet Count 235, Mean Platelet Volume 6.8, Neutrophils (%) (Auto) 43.2L, Lymphocytes ( %) (Auto) 36.3, Monocytes (%) (Auto) 12.6H, Eosinophils (%) (Auto) 6.3H, Basophils (%) (Auto) 1.6, Sodium Level 139, Potassium Level 4.2, Chloride Level 105, Carbon Dioxide Level 30, Anion Gap 4L, Blood Urea Nitrogen 12, Creatinine 0.6, Estimat Glomerular Filtration Rate > 60, Glucose Level 85, Calcium Level 8.8 Current Medications Medications (Trade) Dose Ordered Sig/Alma Route PRN Reason Start Time Stop Time Status Last Admin Dose Admin Acetaminophen (Tylenol) 650 mg Q4H PRN ORAL FEVER (temp>100.5F) 07/02/17 18:45 07/29/17 14:44 Albuterol/ Ipratropium (Albuterol/ Ipratropium) 3 ml Q4H PRN HHN Shortness of Breath 07/02/17 18:30 07/04/17 18:29 Aspirin (ASA) 162 mg DAILY ORAL 07/03/17 09:00 07/28/17 08:59 07/03/17 08:22 Carbidopa/Levodopa (Sinemet 25/100) 1 tab THREE TIMES A DAY ORAL 07/02/17 18:30 07/28/17 18:29 07/03/17 17:23 Cyclobenzaprine HCl (Flexeril) 10 mg THREE TIMES A DAY ORAL 07/02/17 18:30 07/28/17 18:29 07/03/17 17:23 Enalaprilat (Vasotec) 2.5 mg Q6H PRN IV SBP > 160 07/02/17 18:30 07/29/17 18:29 Heparin Sodium (Porcine) (Heparin 5000 units/ml) 5,000 units EVERY 12 HOURS SUBQ 07/02/17 21:00 07/28/17 08:59 07/03/17 08:27 Midodrine (Pro-Amatine) 2.5 mg THREE TIMES A DAY ORAL 07/02/17 18:30 07/31/17 18:29 07/03/17 17:24 Morphine Sulfate (Morphine Sulfate) 2 mg Q4H PRN IVP severe Pain (Pain Scale 7-10) 07/02/17 18:30 2/18 14:29 Multivitamins (Multivitamins) 1 tab DAILY ORAL 07/03/17 09:00 07/29/17 08:59 07/03/17 08:23 Nitroglycerin (Ntg) 0.4 mg Q5MIN PRN SL Prn Chest Pain 07/02/17 17:45 07/30/17 14:29 Ondansetron HCl (Zofran) 4 mg Q6H PRN IVP Nausea & Vomiting 07/02/17 18:30 07/29/17 18:29 Polyethylene Glycol (Miralax) 17 gm DAILYPRN PRN ORAL Constipation 07/02/17 18:30 08/01/17 18:29 Ropinirole HCl (Requip) 0.25 mg THREE TIMES A DAY ORAL 07/02/17 20:00 08/01/17 19:59 07/03/17 17:24 Temazepam (Restoril) 15 mg HSPRN PRN ORAL Insomnia 07/02/17 18:30 07/09/17 18:29 LUKE MARTE Jul 03, 2017 18:26
[2017-07-04] VITALS (7 sets, daily range): BP systolic 80–116; BP diastolic 48–74
[2017-07-04] MEDS: rOPINIRole 0.25mg tab ORAL SCH ×3 (08:17→17:45)
[2017-07-04] MEDS: Aspirin Baby 81mg ORAL SCH (08:18)
[2017-07-04] MEDS: Levodopa/Carbidopa 25/100 tab ORAL SCH ×3 (08:18→17:46)
[2017-07-04] MEDS: Cyclobenzaprine 10mg Tab ORAL SCH ×3 (08:18→17:46)
[2017-07-04] MEDS: Heparin 5000 units/ml inj SUBQ SCH ×2 (08:24→22:51)
[2017-07-04] MEDS: LORazepam Inj 2mg/ml 1ml IV PRN ×2 (08:59→23:51)
[2017-07-04 09:00] LABS: BASOPHILS % (AUTO) 1.6 % (0.0-2.0); EOSINOPHILS % (AUTO) 6.1 % (0.0-3.0); HEMATOCRIT 37.1 % (37.0-47.0); HEMOGLOBIN 12.4 G/DL (12.0-16.0); LYMPHOCYTES % (AUTO) 42.9 % (20.0-45.0); MEAN CORPUSCULAR VOLUME 94 FL (80-99); MONOCYTES % (AUTO) 9.8 % (1.0-10.0); NEUTROPHILS % (AUTO) 39.6 % (45.0-75.0); PLATELET COUNT 238 K/UL (150-450); RED BLOOD COUNT 3.93 M/UL (4.20-5.40); RED CELL DISTRIBUTION WIDTH 13.2 % (11.6-14.8); WHITE BLOOD COUNT 3.9 K/UL (4.8-10.8)
[2017-07-04 09:18] LABS: ANION GAP 6 mmol/L (5-15); BLOOD UREA NITROGEN 21 mg/dL (7-18); CALCIUM 8.8 MG/DL (8.5-10.1); CARBON DIOXIDE 30 MMOL/L (21-32); CHLORIDE 107 MMOL/L (98-107); CREATININE 0.6 MG/DL (0.55-1.30); SODIUM 143 MMOL/L (136-145)
--- NOTE | 2017-07-04 11:47 | Internal Med Progress Note ---
Subjective Date of Service: Jul 04, 2017 Physician Name Jerome Nichole Attending Physician Robin Chow MD Current Medications Medications (Trade) Dose Ordered Sig/Alma Route PRN Reason Start Time Stop Time Status Last Admin Dose Admin Acetaminophen (Tylenol) 650 mg Q4H PRN ORAL FEVER (temp>100.5F) 07/02/17 18:45 07/29/17 14:44 Albuterol/ Ipratropium (Albuterol/ Ipratropium) 3 ml Q4H PRN HHN Shortness of Breath 07/02/17 18:30 07/04/17 18:29 Aspirin (ASA) 162 mg DAILY ORAL 07/03/17 09:00 07/28/17 08:59 07/04/17 08:18 Carbidopa/Levodopa (Sinemet 25/100) 1 tab THREE TIMES A DAY ORAL 07/02/17 18:30 07/28/17 18:29 07/04/17 08:18 Cyclobenzaprine HCl (Flexeril) 10 mg THREE TIMES A DAY ORAL 07/02/17 18:30 07/28/17 18:29 07/04/17 08:18 Enalaprilat (Vasotec) 2.5 mg Q6H PRN IV SBP > 160 07/02/17 18:30 07/29/17 18:29 Heparin Sodium (Porcine) (Heparin 5000 units/ml) 5,000 units EVERY 12 HOURS SUBQ 07/02/17 21:00 07/28/17 08:59 07/04/17 08:24 Lorazepam (Ativan 2mg/ml 1ml) 1 mg Q4H PRN IV For Anxiety, tremors 07/04/17 08:45 07/11/17 08:44 07/04/17 08:59 Midodrine (Pro-Amatine) 2.5 mg THREE TIMES A DAY ORAL 07/02/17 18:30 07/31/17 18:29 07/03/17 17:24 Morphine Sulfate (Morphine Sulfate) 2 mg Q4H PRN IVP severe Pain (Pain Scale 7-10) 07/02/17 18:30 07/06/17 14:29 Multivitamins (Multivitamins) 1 tab DAILY ORAL 07/03/17 09:00 07/29/17 08:59 07/04/17 08:20 Nitroglycerin (Ntg) 0.4 mg Q5MIN PRN SL Prn Chest Pain 07/02/17 17:45 07/30/17 14:29 Ondansetron HCl (Zofran) 4 mg Q6H PRN IVP Nausea & Vomiting 07/02/17 18:30 07/29/17 18:29 Polyethylene Glycol (Miralax) 17 gm DAILYPRN PRN ORAL Constipation 07/02/17 18:30 08/01/17 18:29 Ropinirole HCl (Requip) 0.25 mg THREE TIMES A DAY ORAL 07/02/17 20:00 08/01/17 19:59 07/04/17 08:17 Temazepam (Restoril) 15 mg HSPRN PRN ORAL Insomnia 07/02/17 18:30 07/09/17 18:29 Allergies: Coded Allergies: No Known Allergies (Unverified , 06/27/17) ROS Limited/Unobtainable: No Constitutional: Reports: no symptoms HEENT: Reports: no symptoms Cardiovascular: Reports: no symptoms Respiratory: Reports: no symptoms Gastrointestinal/Abdominal: Reports: no symptoms Genitourinary: Reports: no symptoms Neurologic/Psychiatric: Reports: tremors Subjective 67 YO F admitted with chest pain and tremors. Await CT abdomen with hemangioma protocol. Cover for Int Med-Dr Chow Objective Last Vital Signs Date Time Temp Pulse Resp B/P (MAP) Pulse Ox O2 Delivery O2 Flow Rate FiO2 07/04/17 11:39 97.5 71 18 116/68 Room Air 07/04/17 08:14 98 07/03/17 06:45 21 Laboratory Tests Test 07/04/17 07:40 White Blood Count 3.9 K/UL (4.8-10.8) L Red Blood Count 3.93 M/UL (4.20-5.40) L Hemoglobin 12.4 G/DL (12.0-16.0) Hematocrit 37.1 % (37.0-47.0) Mean Corpuscular Volume 94 FL (80-99) Mean Corpuscular Hemoglobin 31.5 PG (27.0-31.0) H Mean Corpuscular Hemoglobin Concent 33.4 G/DL (32.0-36.0) Red Cell Distribution Width 13.2 % (11.6-14.8) Platelet Count 238 K/UL (150-450) Mean Platelet Volume 6.9 FL (6.5-10.1) Neutrophils (%) (Auto) 39.6 % (45.0-75.0) L Lymphocytes (%) (Auto) 42.9 % (20.0-45.0) Monocytes (%) (Auto) 9.8 % (1.0-10.0) Eosinophils (%) (Auto) 6.1 % (0.0-3.0) H Basophils (%) (Auto) 1.6 % (0.0-2.0) Sodium Level 143 MMOL/L (136-145) Potassium Level 4.0 MMOL/L (3.5-5.1) Chloride Level 107 MMOL/L (98-107) Carbon Dioxide Level 30 MMOL/L (21-32) Anion Gap 6 mmol/L (5-15) Blood Urea Nitrogen 21 mg/dL (7-18) H Creatinine 0.6 MG/DL (0.55-1.30) Estimat Glomerular Filtration Rate > 60 mL/min (>60) Glucose Level 84 MG/DL (74-106) Calcium Level 8.8 MG/DL (8.5-10.1) Intake and Output 07/03/17 07/04/17 19:00 07:00 Intake Total 360 ml Balance 360 ml Intake Oral 360 ml # Voids 2 2 Objective General Appearance: WD/WN, no apparent distress, alert EENT: PERRL/EOMI, normal ENT inspection Neck: non-tender, normal alignment, supple, normal inspection Cardiovascular: normal peripheral pulses, normal rate, regular rhythm, no gallop/murmur, no JVD Respiratory/Chest: chest wall non-tender, lungs clear, normal breath sounds, no respiratory distress, no accessory muscle use, respiratory distress Abdomen: normal bowel sounds, non tender, soft, no organomegaly, no mass Extremities: normal range of motion, non-tender, normal inspection 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 Cont sinemet (2) Tremor (3) HTN (hypertension) Assessment & Plan: Currently hypotensive; Hold vasotec and cardizem (4) Chest pain Assessment & Plan: See Cardiology note. (5) Elevated troponin Assessment & Plan: See cardiology note. (6) Fracture, sternum closed (7) Liver mass Assessment & Plan: Await CT abdomen with hemiangioma protocol Status: progressing Assessment/Plan [facility]: [facility] Jul 04, 2017 11:47
[2017-07-04] MEDS ORDERED: CYCLOBENZAPRINE10 MG ORAL (11:50)
[2017-07-04] MEDS ORDERED: SINEMET 25/1001 EA ORAL (11:50)
--- NOTE | 2017-07-04 14:43 | GI Initial Consult Note ---
DanielsShanell Robert N.P. 07/04/17 1443: History of Present Illness General Date patient seen: Jul 04, 2017 Time patient seen: 11:00 Reason for Hospitalization: Chest Pain Reason for Consultation: LIVER MASS Present Illness HPI Patient presents with chest pain. Has been for 4 hours. She has uncontrolled tremors of her arms. They have been jerking violently for several hours. There was a recent change in her medications. She reports the pain in her chest as sternal and to the left. She does not ambulate, so not exertional ( though arms have been celso). More in chest wall and radiating to side on L. No fevers, URI, cough, dyspnea, NVD, diaphoresis, headache, LOC, abdominal pain , change in bowels, dysuria. The nature of the jerking has not been diagnosed. GI consulted for liver mass noted on recent chest CT. Pt seen on floor, had just recent from CT AP with liver protocol. Resting, denies any pain, N/V/D. Awaiting CT results. Home Meds Active Scripts Cyclobenzaprine Hcl* (FLEXERIL*) 10 Mg Tablet, 10 MG ORAL THREE TIMES A DAY for 30 Days, TAB Prov:MINE SPIVEY 07/04/17 Levodopa/Carbidopa (Carbidopa-Levodopa 25-100 Tab) 1 Each Tablet, 1 TAB ORAL THREE TIMES A DAY for 30 Days, TAB Prov:MINE SPIVEY 07/04/17 Reported Medications Zinc Sulfate (ZINC SULFATE*) 220 Mg Capsule, 220 MG ORAL DAILY, CAP 0 Refills 06/28/17 Cholecalciferol (Vitamin D3) (VITAMIN D-3) 2,000 Unit Capsule, 2000 UNIT PO DAILY, CAP 06/28/17 Ascorbic Acid* (VITAMIN C*) 500 Mg Tablet, 500 MG ORAL DAILY, #30 TAB 0 Refills 06/28/17 Eucalyptus Oil/Menthol/Camphor (VICKS VAPORUB OINTMENT) 50 Gm Oint...g., 50 GM TP QID for For Cough, GM 06/28/17 Tramadol Hcl* (ULTRAM*) 50 Mg Tablet, 50 MG ORAL Q6H Y for For Pain, #30 TAB 0 Refills 06/28/17 Benzonatate* (TESSALON PERLE*) 100 Mg Capsule, 100 MG ORAL THREE TIMES A DAY, PERLE 2/1/18 Propranolol Hcl* (INDERAL*) 20 Mg Tablet, 20 MG ORAL THREE TIMES A DAY, #90 TAB 0 Refills 06/28/17 Primidone* (MYSOLINE*) 50 Mg Tablet, 42.5 MG PO DAILY, TAB 06/28/17 Primidone* (MYSOLINE*) 50 Mg Tablet, 50 MG PO BEDTIME, TAB 06/28/17 Multivitamin (Multivitamins) 1 Each Tablet, 1 EACH PO BEDTIME, TAB 06/28/17 Magnesium Hydroxide* (MILK OF MAGNESIA*) 400 Mg/5 Ml Oral.susp, 30 ML ORAL DAILY Y for Constipation, ML 06/28/17 Magnesium Oxide (MAGNESIUM OXIDE) 500 Mg Capsule, 400 MG PO BEDTIME, CAP 06/28/17 Na Phos,M-B/Na Phos,Di-Ba* (FLEET ENEMA*) 133 Ml Enema, 133 ML RECTAL DAILY, ML 0 Refills 06/28/17 Ipratropium/Albuterol Sulfate (DuoNeb 0.5-3(2.5)mg/3ml) 3 Ml Ampul.neb, 3 ML HHN Q8HR, EA 06/28/17 Bisacodyl (DULCOLAX) 10 Mg Supp.rect, 10 MG RC, SUPP 06/28/17 Docusate Sodium* (COLACE*) 100 Mg Capsule, 100 MG ORAL TWICE A DAY Y for Constipation, CAP 06/28/17 Lactose-Free Food (BOOST PLUS) 237 Ml Liquid, 237 ML PO BID Y for Constipation, ML 06/28/17 Ipratropium Sycamore (ATROVENT HFA) 12.9 Gm Hfa.aer.ad, 17 MCG IH Q6HR Y for Shortness of Breath 06/28/17 Ipratropium [place]camore (ATROVENT HFA) 12.9 Gm Hfa.aer.ad, 12.9 GM IH Q6HR 06/28/17 Lorazepam* (ATIVAN*) 0.5 Mg Tablet, 0.5 MG ORAL THREE TIMES A DAY, TAB 06/28/17 Acetaminophen (Acetaminophen) 650 Mg/20.3 Ml Solution, 650 MG ORAL Q6H Y for Prn Headache/Temp > 101, ML 0 Refills 06/28/17 Discontinued Reported Medications Carbidopa/Levodopa 25-100 Mg* (SINEMET 25-100 MG TABLET*) 1 Each Tablet, 0.5 TAB ORAL THREE TIMES A DAY, TAB 06/27/17 Med list reviewed/reconciled: Yes Allergies: Coded Allergies: No Known Allergies (Unverified , 06/27/17) Patient History History Provided By: Patient, Medical Record PMH Narrative Past Medical History: see triage record Past Surgical History: other - back surgery Social History: Denies: smoking Social History Narrative SNF Last Menstrual Period: NA Reviewed Nursing Documentation: PMH: Agreed, PSxH: Agreed Nursing Documentation-PMH Hx Hypertension: Yes Hx Asthma: Yes Social History: Denies: smoking, alcohol use, drug use, other Review of Systems All Other Systems: negative except mentioned in HPI Physical Exam Vital Signs Date Time Temp Pulse Resp B/P (MAP) Pulse Ox O2 Delivery O2 Flow Rate FiO2 06/30/17 07:27 72 06/30/17 08:00 97.5 19 95/54 98 Room Air 07/02/17 07:39 21 Sp02 EP Interpretation: reviewed, normal Labs Laboratory Tests Test 07/04/17 07:40 White Blood Count 3.9 K/UL (4.8-10.8) L Red Blood Count 3.93 M/UL (4.20-5.40) L Hemoglobin 12.4 G/DL (12.0-16.0) Hematocrit 37.1 % (37.0-47.0) Mean Corpuscular Volume 94 FL (80-99) Mean Corpuscular Hemoglobin 31.5 PG (27.0-31.0) H Mean Corpuscular Hemoglobin Concent 33.4 G/DL (32.0-36.0) Red Cell Distribution Width 13.2 % (11.6-14.8) Platelet Count 238 K/UL (150-450) Mean Platelet Volume 6.9 FL (6.5-10.1) Neutrophils (%) (Auto) 39.6 % (45.0-75.0) L Lymphocytes (%) (Auto) 42.9 % (20.0-45.0) Monocytes (%) (Auto) 9.8 % (1.0-10.0) Eosinophils (%) (Auto) 6.1 % (0.0-3.0) H Basophils (%) (Auto) 1.6 % (0.0-2.0) Sodium Level 143 MMOL/L (136-145) Potassium Level 4.0 MMOL/L (3.5-5.1) Chloride Level 107 MMOL/L (98-107) Carbon Dioxide Level 30 MMOL/L (21-32) Anion Gap 6 mmol/L (5-15) Blood Urea Nitrogen 21 mg/dL (7-18) H Creatinine 0.6 MG/DL (0.55-1.30) Estimat Glomerular Filtration Rate > 60 mL/min (>60) Glucose Level 84 MG/DL (74-106) Calcium Level 8.8 MG/DL (8.5-10.1) General Appearance: well appearing, no apparent distress, alert, thin Head: normocephalic EENT: PERRL/EOMI, normal ENT inspection Neck: supple Respiratory: normal breath sounds, no respiratory distress Cardiovascular: normal rate Gastrointestinal: normal inspection, non tender, soft, normal bowel sounds, non -distended Rectal: deferred Genitourinary: no CVA tenderness Musculoskeletal: normal inspection, back normal Neurologic: normal inspection, alert, oriented x3, responsive Psychiatric: normal inspection, judgement/insight normal, memory normal Skin: normal inspection, normal color, no rash, warm/dry, palpation normal, well hydrated Lymphatic: normal inspection, no adenopathy Current Medications Current Medications Medications (Trade) Dose Ordered Sig/Alma Route PRN Reason Start Time Stop Time Status Last Admin Dose Admin Acetaminophen (Tylenol) 650 mg Q4H PRN ORAL FEVER (temp>100.5F) 07/02/17 18:45 07/29/17 14:44 Albuterol/ Ipratropium (Albuterol/ Ipratropium) 3 ml Q4H PRN HHN Shortness of Breath 07/02/17 18:30 07/04/17 18:29 Aspirin (ASA) 162 mg DAILY ORAL 07/03/17 09:00 07/28/17 08:59 07/04/17 08:18 Carbidopa/Levodopa (Sinemet 25/100) 1 tab THREE TIMES A DAY ORAL 07/02/17 18:30 07/28/17 18:29 07/04/17 11:55 Cyclobenzaprine HCl (Flexeril) 10 mg THREE TIMES A DAY ORAL 07/02/17 18:30 07/28/17 18:29 07/04/17 11:55 Enalaprilat (Vasotec) 2.5 mg Q6H PRN IV SBP > 160 07/02/17 18:30 07/29/17 18:29 Heparin Sodium (Porcine) (Heparin 5000 units/ml) 5,000 units EVERY 12 HOURS SUBQ 07/02/17 21:00 07/28/17 08:59 07/04/17 08:24 Lorazepam (Ativan 2mg/ml 1ml) 1 mg Q4H PRN IV For Anxiety, tremors 07/04/17 08:45 07/11/17 08:44 07/04/17 08:59 Midodrine (Pro-Amatine) 2.5 mg THREE TIMES A DAY ORAL 07/02/17 18:30 07/31/17 18:29 07/03/17 17:24 Morphine Sulfate (Morphine Sulfate) 2 mg Q4H PRN IVP severe Pain (Pain Scale 7-10) 07/02/17 18:30 07/06/17 14:29 Multivitamins (Multivitamins) 1 tab DAILY ORAL 07/03/17 09:00 07/29/17 08:59 07/04/17 08:20 Nitroglycerin (Ntg) 0.4 mg Q5MIN PRN SL Prn Chest Pain 07/02/17 17:45 07/30/17 14:29 Ondansetron HCl (Zofran) 4 mg Q6H PRN IVP Nausea & Vomiting 07/02/17 18:30 07/29/17 18:29 Polyethylene Glycol (Miralax) 17 gm DAILYPRN PRN ORAL Constipation 07/02/17 18:30 08/01/17 18:29 Ropinirole HCl (Requip) 0.25 mg THREE TIMES A DAY ORAL 07/02/17 20:00 08/01/17 19:59 07/04/17 11:55 Temazepam (Restoril) 15 mg HSPRN PRN ORAL Insomnia 07/02/17 18:30 07/09/17 18:29 GI: Plan Problems: (1) Liver mass Plan fu CT AP, liver protocol regular diet, tolerating pain mgmt H2B fu labs, AFP outpatient GI procedures Discussed with Dr. Chen. Thank you for this patient referral, we will follow. UTE CHEN 07/09/17 1511: History of Present Illness General Reason for Hospitalization: Chest Pain Present Illness Home Meds Active Scripts Cyclobenzaprine Hcl* (FLEXERIL*) 10 Mg Tablet, 10 MG ORAL THREE TIMES A DAY for 30 Days, TAB Prov:MINE SPIVEY 07/04/17 Levodopa/Carbidopa (Carbidopa-Levodopa 25-100 Tab) 1 Each Tablet, 1 TAB ORAL THREE TIMES A DAY for 30 Days, TAB Prov:SPIVEY,MINE 07/04/17 Reported Medications Zinc Sulfate (ZINC SULFATE*) 220 Mg Capsule, 220 MG ORAL DAILY, CAP 0 Refills 06/28/17 Cholecalciferol (Vitamin D3) (VITAMIN D-3) 2,000 Unit Capsule, 2000 UNIT PO DAILY, CAP 06/28/17 Ascorbic Acid* (VITAMIN C*) 500 Mg Tablet, 500 MG ORAL DAILY, #30 TAB 0 Refills 06/28/17 Eucalyptus Oil/Menthol/Camphor (VICKS VAPORUB OINTMENT) 50 Gm Oint...g., 50 GM TP QID for For Cough, GM 06/28/17 Tramadol Hcl* (ULTRAM*) 50 Mg Tablet, 50 MG ORAL Q6H Y for For Pain, #30 TAB 0 Refills 06/28/17 Benzonatate* (TESSALON PERLE*) 100 Mg Capsule, 100 MG ORAL THREE TIMES A DAY, PERLE 06/28/17 Propranolol Hcl* (INDERAL*) 20 Mg Tablet, 20 MG ORAL THREE TIMES A DAY, #90 TAB 0 Refills 06/28/17 Primidone* (MYSOLINE*) 50 Mg Tablet, 42.5 MG PO DAILY, TAB 06/28/17 Primidone* (MYSOLINE*) 50 Mg Tablet, 50 MG PO BEDTIME, TAB 06/28/17 Multivitamin (Multivitamins) 1 Each Tablet, 1 EACH PO BEDTIME, TAB 06/28/17 Magnesium Hydroxide* (MILK OF MAGNESIA*) 400 Mg/5 Ml Oral.susp, 30 ML ORAL DAILY Y for Constipation, ML 06/28/17 Magnesium Oxide (MAGNESIUM OXIDE) 500 Mg Capsule, 400 MG PO BEDTIME, CAP 06/28/17 Na Phos,M-B/Na Phos,Di-Ba* (FLEET ENEMA*) 133 Ml Enema, 133 ML RECTAL DAILY, ML 0 Refills 06/28/17 Ipratropium/Albuterol Sulfate (DuoNeb 0.5-3(2.5)mg/3ml) 3 Ml Ampul.neb, 3 ML HHN Q8HR, EA 06/28/17 Bisacodyl (DULCOLAX) 10 Mg Supp.rect, 10 MG RC, SUPP 06/28/17 Docusate Sodium* (COLACE*) 100 Mg Capsule, 100 MG ORAL TWICE A DAY Y for Constipation, CAP 06/28/17 Lactose-Free Food (BOOST PLUS) 237 Ml Liquid, 237 ML PO BID Y for Constipation, ML 06/28/17 Ipratropium Sycamore (ATROVENT HFA) 12.9 Gm Hfa.aer.ad, 17 MCG IH Q6HR Y for Shortness of Breath 06/28/17 Ipratropium [place]ore (ATROVENT HFA) 12.9 Gm Hfa.aer.ad, 12.9 GM IH Q6HR 06/28/17 Lorazepam* (ATIVAN*) 0.5 Mg Tablet, 0.5 MG ORAL THREE TIMES A DAY, TAB 06/28/17 Acetaminophen (Acetaminophen) 650 Mg/20.3 Ml Solution, 650 MG ORAL Q6H Y for Prn Headache/Temp > 101, ML 0 Refills 06/28/17 Discontinued Reported Medications Carbidopa/Levodopa 25-100 Mg* (SINEMET 25-100 MG TABLET*) 1 Each Tablet, 0.5 TAB ORAL THREE TIMES A DAY, TAB 06/27/17 Allergies: Coded Allergies: No Known Allergies (Unverified , 06/27/17) GI: Plan Plan The patient was seen and examined at bedside and all new and available data was reviewed in the patients chart. I agree with the above findings, impression and plan. (Patient seen earlier today. Signature stamp does not reflect patient encounter time.). - MD Frances Godinez Anh Robert N.PAlix Jul 04, 2017 14:43 UTE CHEN Jul 09, 2017 15:11
--- NOTE | 2017-07-04 15:03 | Diagnostic Imaging Report ---
Clinical Indication: Abnormal pain, possible hemangioma seen on previous chest CT Technique: Patient ingested oral contrast IV administration nonionic contrast. Arterial, venous, 3 minute delayed and 10 minute delayed phase images obtained through the abdomen and pelvis. Multiplanar reconstructions were generated. Total dose length product 1555.15 mGycm. CTDIvol(s) 10.51,11.02,10.68,10.28 mGy. Dose reduction achieved using automated exposure control Comparison: Reference made to chest CT scans of and July 02, 2017 Findings: There are what appears to be 2 masses in segment 8 of the liver, although this could be just one large multilobulated mass by a thin bridge of tissue. The more cephalad and medial component measures 2.6 x 2.1 x 2.2 cm. The larger more lateral and caudad component measures 4 cm transverse by 4.7 cm AP by 5.6 cm craniocaudad. On the arterial phase images, these demonstrate minimal peripheral nodular enhancement. On the venous phase images, these demonstrate more extensive peripheral nodular enhancement. Progressive enhancement is seen on the 3 minute acquisition. On the 10 minute acquisition, the cephalad component is nearly entirely isoattenuating with normal liver, and the more caudad component is nearly isoattenuating with a few scattered low-attenuation areas. Also demonstrated are multiple hepatic cysts, as well as multiple subcentimeter hepatic low-attenuation lesions which are too small to characterize. The largest such lesion is in segment 3. It demonstrates slightly greater than fluid attenuation, but does not enhance so it is presumed to be a complex cyst. The gallbladder, bile ducts, pancreas, spleen, adrenals are all unremarkable. The left kidney is unremarkable. The right kidney demonstrates subcentimeter low-attenuation lesions which are too small to characterize but most likely represent benign simple cysts. The uterus is markedly enlarged, measuring approximately 18 cm transverse by 9.2 cm AP by 12 cm craniocaudad. It contains multiple masses, largest measuring 9 cm long axis dimension and containing multiple calcifications. Several of the masses are hypoattenuating. There is considerable rectal fecal distention by stool, rectum measuring nearly 9 cm transverse dimension. No definite evidence of diverticulosis or diverticulitis. The appendix is normal. No small bowel distention. There is equivocal free intraperitoneal fluid in the right lower quadrant. No free intraperitoneal air. The distal esophagus, stomach, duodenum are unremarkable. There is generalized edema of the subcutaneous, pelvic, and mesenteric fat. There is degenerative spondylosis at the lumbosacral junction. Impression: Multilobulated mass versus 2 separate masses within segment 8 of the liver. Enhancement characteristics of these indicate that these are benign hemangiomas Multiple hepatic cysts as well as multiple subcentimeter low-attenuation hepatic lesions which are too small to characterize but most likely represent benign simple cysts or bile hamartomas Markedly enlarged uterus with multiple fibroids Rectal fecal distention with stool, suspect rectal fecal impaction. Correlate with clinical findings Anasarca, with diffuse edema of the subcutaneous, abdominal, and pelvic fat Possible small amount of free intraperitoneal fluid Incidental finding of minimal degenerative spondylosis The CT scanner at [facility] is accredited by the [employer] and the scans are performed using protocols designed to limit radiation exposure to as low as reasonably achievable to attain images of sufficient resolution adequate for diagnostic evaluation.
--- NOTE | 2017-07-04 15:28 | Pulmonology Progress Note ---
Assessment/Plan Problems: (1) Atypical Parkinson syndrom, advanced (2) Chest pain Assessment/Plan CT chest showed questionable mass, will get CT chest with contrast cardiology input appreciated neurology consult appreciated asymptoamtic now GI and hematology called CT abdomen pending Right lobe liver loculated mass versus multiple masses again demonstrated. A focus of peripheral nodular enhancement raises the possibility that this could represent a hemangioma. Recommend dedicated liver CT with hemangioma protocol ct abdomen reviewed Subjective ROS Limited/Unobtainable: No Constitutional: Reports: no symptoms HEENT: Repors: no symptoms Respiratory: Reports: no symptoms Allergies: Coded Allergies: No Known Allergies (Unverified , 06/27/17) Objective Last 24 Hour Vital Signs Date Time Temp Pulse Resp B/P (MAP) Pulse Ox O2 Delivery O2 Flow Rate FiO2 07/04/17 12:54 97.5 07/04/17 11:39 97.5 71 18 116/68 Room Air 07/04/17 08:14 98.1 85 19 114/74 98 Room Air 07/04/17 04:30 97.5 89 17 108/68 97 07/04/17 00:00 97.9 81 20 100/70 96 07/03/17 20:00 97.5 82 20 103/60 97 07/03/17 16:00 97.0 85 20 108/69 97 Intake and Output 07/03/17 07/04/17 19:00 07:00 Intake Total 360 ml Balance 360 ml Intake Oral 360 ml # Voids 2 2 Objective General Appearance: no apparent distress, alert, HEENT: normocephalic, atraumatic, anicteric, mucous membranes moist Neck: non-tender, normal alignment, supple Respiratory/Chest: lungs clear, no respiratory distress, no accessory muscle use Cardiovascular/Chest: normal peripheral pulses, normal rate, no JVD Abdomen: normal bowel sounds, non tender, soft Extremities: non-tender, no calf tenderness, normal capillary refill 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, 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, [employer]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 Laboratory Tests 07/04/17 07:40: White Blood Count 3.9L, Red Blood Count 3.93L, Hemoglobin 12.4, Hematocrit 37.1 , Mean Corpuscular Volume 94, Mean Corpuscular Hemoglobin 31.5H, Mean Corpuscular Hemoglobin Concent 33.4, Red Cell Distribution Width 13.2, Platelet Count 238, Mean Platelet Volume 6.9, Neutrophils (%) (Auto) 39.6L, Lymphocytes ( %) (Auto) 42.9, Monocytes (%) (Auto) 9.8, Eosinophils (%) (Auto) 6.1H, Basophils (%) (Auto) 1.6, Sodium Level 143, Potassium Level 4.0, Chloride Level 107, Carbon Dioxide Level 30, Anion Gap 6, Blood Urea Nitrogen 21H, Creatinine 0.6, Estimat Glomerular Filtration Rate > 60, Glucose Level 84, Calcium Level 8.8 Current Medications Medications (Trade) Dose Ordered Sig/Alma Route PRN Reason Start Time Stop Time Status Last Admin Dose Admin Acetaminophen (Tylenol) 650 mg Q4H PRN ORAL FEVER (temp>100.5F) 07/02/17 18:45 07/29/17 14:44 Albuterol/ Ipratropium (Albuterol/ Ipratropium) 3 ml Q4H PRN HHN Shortness of Breath 07/02/17 18:30 07/04/17 18:29 Aspirin (ASA) 162 mg DAILY ORAL 07/03/17 09:00 07/28/17 08:59 07/04/17 08:18 Carbidopa/Levodopa (Sinemet 25/100) 1 tab THREE TIMES A DAY ORAL 07/02/17 18:30 07/28/17 18:29 07/04/17 11:55 Cyclobenzaprine HCl (Flexeril) 10 mg THREE TIMES A DAY ORAL 07/02/17 18:30 07/28/17 18:29 07/04/17 11:55 Enalaprilat (Vasotec) 2.5 mg Q6H PRN IV SBP > 160 07/02/17 18:30 07/29/17 18:29 Famotidine (Pepcid) 20 mg QHS ORAL 07/04/17 21:00 08/03/17 20:59 Heparin Sodium (Porcine) (Heparin 5000 units/ml) 5,000 units EVERY 12 HOURS SUBQ 07/02/17 21:00 07/28/17 08:59 07/04/17 08:24 Lorazepam (Ativan 2mg/ml 1ml) 1 mg Q4H PRN IV For Anxiety, tremors 07/04/17 08:45 07/11/17 08:44 07/04/17 08:59 Midodrine (Pro-Amatine) 2.5 mg THREE TIMES A DAY ORAL 07/02/17 18:30 07/31/17 18:29 07/03/17 17:24 Morphine Sulfate (Morphine Sulfate) 2 mg Q4H PRN IVP severe Pain (Pain Scale 7-10) 07/02/17 18:30 07/06/17 14:29 Multivitamins (Multivitamins) 1 tab DAILY ORAL 07/03/17 09:00 07/29/17 08:59 07/04/17 08:20 Nitroglycerin (Ntg) 0.4 mg Q5MIN PRN SL Prn Chest Pain 07/02/17 17:45 07/30/17 14:29 Ondansetron HCl (Zofran) 4 mg Q6H PRN IVP Nausea & Vomiting 07/02/17 18:30 07/29/17 18:29 Polyethylene Glycol (Miralax) 17 gm DAILYPRN PRN ORAL Constipation 07/02/17 18:30 08/01/17 18:29 Ropinirole HCl (Requip) 0.25 mg THREE TIMES A DAY ORAL 07/02/17 20:00 08/01/17 19:59 07/04/17 11:55 Temazepam (Restoril) 15 mg HSPRN PRN ORAL Insomnia 07/02/17 18:30 07/09/17 18:29 LUKE MARTE Jul 04, 2017 15:28
[2017-07-04] MEDS: Docusate 100mg cap ORAL SCH (17:45)
[2017-07-04] MEDS ORDERED: Sodium Chloride 500ML 500 ML IV ONE (20:30)
[2017-07-04] MEDS ORDERED: Miralax 17gm pkt ORAL SCH (21:00)
[2017-07-05] VITALS: BP 103/64
[2017-07-05 04:00] VITALS: BP_SYST 102; BP_SYST 105; BP_DIAS 64; BP_DIAS 70
[2017-07-05 08:00] VITALS: BP 127/63
[2017-07-05] MEDS: Aspirin Baby 81mg ORAL SCH (08:37)
[2017-07-05] MEDS: rOPINIRole 0.25mg tab ORAL SCH ×2 (08:38→12:17)
[2017-07-05] MEDS: Cyclobenzaprine 10mg Tab ORAL SCH ×2 (08:38→12:17)
[2017-07-05] MEDS: Levodopa/Carbidopa 25/100 tab ORAL SCH ×2 (08:38→12:17)
[2017-07-05] MEDS: Docusate 100mg cap ORAL SCH ×2 (08:38→12:17)
[2017-07-05] MEDS: Heparin 5000 units/ml inj SUBQ SCH (08:39)
[2017-07-05 11:07] LABS: BASOPHILS % (AUTO) 1.8 % (0.0-2.0); EOSINOPHILS % (AUTO) 6.2 % (0.0-3.0); HEMATOCRIT 34.9 % (37.0-47.0); HEMOGLOBIN 11.9 G/DL (12.0-16.0); LYMPHOCYTES % (AUTO) 42.1 % (20.0-45.0); MEAN CORPUSCULAR VOLUME 94 FL (80-99); MONOCYTES % (AUTO) 12.4 % (1.0-10.0); NEUTROPHILS % (AUTO) 37.5 % (45.0-75.0); PLATELET COUNT 244 K/UL (150-450); RED BLOOD COUNT 3.72 M/UL (4.20-5.40); RED CELL DISTRIBUTION WIDTH 13.5 % (11.6-14.8); WHITE BLOOD COUNT 4.2 K/UL (4.8-10.8)
--- NOTE | 2017-07-05 11:13 | GI Progress Note ---
Assessment/Plan Problems: (1) Liver mass Assessment & Plan: r/o liver mass, see CT. ICD Codes: R16.0 - Hepatomegaly, not elsewhere classified SNOMED: 466900251 Status: stable Status Narrative Discussed with Dr. Galarza. Assessment/Plan CT AP reviewed with patient, see full report >> benign hemangiomas. fecal rectal distention. symptomatic treatment advance diet bowel regime >> colace + miralax H2B fu labs Subjective Gastrointestinal/Abdominal: Reports: no symptoms Objective Last 24 Hour Vital Signs Date Time Temp Pulse Resp B/P (MAP) Pulse Ox O2 Delivery O2 Flow Rate FiO2 07/05/17 09:37 97.4 07/05/17 08:00 97.2 80 18 127/63 96 07/05/17 04:00 97.4 71 18 105/64 96 Room Air 07/05/17 00:00 98.0 74 18 103/64 98 Room Air 07/04/17 21:48 89/56 07/04/17 20:00 97.6 86 18 80/48 96 Room Air 07/04/17 19:07 71 18 Room Air 21 07/04/17 16:00 97.0 98 20 90/54 98 07/04/17 11:39 97.5 71 18 116/68 Room Air Intake and Output 07/04/17 07/05/17 19:00 07:00 Intake Total 360 ml 500 ml Balance 360 ml 500 ml Intake Oral 360 ml IV Total 500 ml # Voids 3 4 # Bowel Movements 1 1 Laboratory Tests Test 07/05/17 10:38 White Blood Count Pending Red Blood Count Pending Hemoglobin Pending Hematocrit Pending Mean Corpuscular Volume Pending Mean Corpuscular Hemoglobin Pending Mean Corpuscular Hemoglobin Concent Pending Red Cell Distribution Width Pending Platelet Count Pending Mean Platelet Volume Pending Neutrophils (%) (Auto) Pending Lymphocytes (%) (Auto) Pending Monocytes (%) (Auto) Pending Eosinophils (%) (Auto) Pending Basophils (%) (Auto) Pending Sodium Level Pending Potassium Level Pending Chloride Level Pending Carbon Dioxide Level Pending Blood Urea Nitrogen Pending Creatinine Pending Estimat Glomerular Filtration Rate Pending Glucose Level Pending Calcium Level Pending Alpha Fetoprotein Pending Height (Feet): 5 Height (Inches): 3.00 Weight (Pounds): 101 General Appearance: WD/WN, no apparent distress, alert Cardiovascular: normal rate Respiratory/Chest: normal breath sounds, no respiratory distress Abdominal Exam: normal bowel sounds, non tender, soft Extremities: normal range of motion, non-tender Shanell Daniels N.P. Jul 05, 2017 11:13
[2017-07-05 11:17] LABS: ANION GAP 4 mmol/L (5-15); BLOOD UREA NITROGEN 17 mg/dL (7-18); CALCIUM 8.7 MG/DL (8.5-10.1); CARBON DIOXIDE 30 MMOL/L (21-32); CHLORIDE 107 MMOL/L (98-107); CREATININE 0.6 MG/DL (0.55-1.30); POTASSIUM 4.3 MMOL/L (3.5-5.1); SODIUM 141 MMOL/L (136-145)
[2017-07-05 12:00] VITALS: BP 129/68
[2017-07-05] MEDS ORDERED: NS 500ML ONE (12:55)
[2017-07-05] MEDS ORDERED: NS 275ml ONE ×2 (12:55)
--- NOTE | 2017-07-05 18:50 | Pulmonology Progress Note ---
Assessment/Plan Problems: (1) Atypical Parkinson syndrom, advanced (2) Chest pain Assessment/Plan pt was seen by GI all notes reviewed dc to long term with clsoe follow up/ Subjective ROS Limited/Unobtainable: No Constitutional: Reports: no symptoms HEENT: Repors: no symptoms Allergies: Coded Allergies: No Known Allergies (Unverified , 06/27/17) Objective Last 24 Hour Vital Signs Date Time Temp Pulse Resp B/P (MAP) Pulse Ox O2 Delivery O2 Flow Rate FiO2 07/05/17 12:00 98.0 74 18 129/68 97 07/05/17 09:37 97.4 07/05/17 08:00 97.2 80 18 127/63 96 07/05/17 04:00 97.4 71 18 105/64 96 Room Air 07/05/17 00:00 98.0 74 18 103/64 98 Room Air 07/04/17 21:48 89/56 07/04/17 20:00 97.6 86 18 80/48 96 Room Air 07/04/17 19:07 71 18 Room Air 21 Intake and Output 07/04/17 07/05/17 19:00 07:00 Intake Total 360 ml 500 ml Balance 360 ml 500 ml Intake Oral 360 ml IV Total 500 ml # Voids 3 4 # Bowel Movements 1 1 Objective General Appearance: no apparent distress, alert, HEENT: normocephalic, atraumatic, anicteric, mucous membranes moist Neck: non-tender, normal alignment, supple Respiratory/Chest: lungs clear, no respiratory distress, no accessory muscle use Cardiovascular/Chest: normal peripheral pulses, normal rate, no JVD Abdomen: normal bowel sounds, non tender, soft Extremities: non-tender, no calf tenderness, normal capillary refill 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, 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, 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 Laboratory Tests 07/05/17 10:38: White Blood Count 4.2L, Red Blood Count 3.72L, Hemoglobin 11.9L, Hematocrit 34.9L, Mean Corpuscular Volume 94, Mean Corpuscular Hemoglobin 32.0H, Mean Corpuscular Hemoglobin Concent 34.1, Red Cell Distribution Width 13.5, Platelet Count 244, Mean Platelet Volume 6.3L, Neutrophils (%) (Auto) 37.5L, Lymphocytes (%) (Auto) 42.1, Monocytes (%) (Auto) 12.4H, Eosinophils (%) (Auto) 6.2H, Basophils (%) (Auto) 1.8, Sodium Level 141, Potassium Level 4.3, Chloride Level 107, Carbon Dioxide Level 30, Anion Gap 4L, Blood Urea Nitrogen 17, Creatinine 0.6, Estimat Glomerular Filtration Rate > 60, Glucose Level 83, Calcium Level 8.7, Alpha Fetoprotein [Pending] LUKE MARTE Jul 05, 2017 18:50
--- NOTE | 2017-07-06 06:00 | Consultation ---
DATE OF CONSULTATION: 07/05/2017 HEMATOLOGY/ONCOLOGY CONSULTATION CONSULTING PHYSICIAN: Colin Shin M.D. REQUESTING PHYSICIAN: Alcides Sanford M.D. REASON FOR CONSULTATION: Evaluation of liver mass. IDENTIFYING DATA: Dear Dr. Sanford, The patient is a pleasant 67-year-old female with past medical history, which is significant for chronic back pain, unspecified tremors of upper extremities, at this time presents from rehabilitation in [place] due to uncontrolled tremors, began to experience chest pains, has been ruled out for ACS by Cardiology, however, noted to have a liver mass on imaging CAT scan of the abdomen and pelvis, multiple hepatic cysts, multilobulated mass versus . These are benign hemangiomas. Hematology Service was consulted for further evaluation and treatment. PAST MEDICAL HISTORY: As noted above. PAST SURGICAL HISTORY: Lumbar laminectomy. MEDICATIONS: Tylenol, Atrovent, , multivitamin, primidone, and propranolol. ALLERGIES: No known allergies. SOCIAL HISTORY: Resident of [facility]. The patient is single. Denies any alcohol, tobacco, or illicit drug use. REVIEW OF SYSTEMS: CONSTITUTIONAL: No fevers, chills, or night sweats. SKIN: No rashes, bumps, or itching. HEENT: No headache, hearing or vision changes. BREASTS: No lumps, pain, or discharge. PULMONARY: No cough, sputum, or shortness of breath. GASTROINTESTINAL: No nausea, vomiting, or diarrhea. GENITOURINARY: No dysuria, frequency, or urgency. MUSCULOSKELETAL: No joint swelling, muscle pain, or trauma. PHYSICAL EXAMINATION: GENERAL: No acute distress. VITAL SIGNS: Reviewed. PULMONARY: Decreased breath sounds. CARDIOVASCULAR: Regular rate. No S3 or S4. ABDOMEN: Soft, nontender, and nondistended. EXTREMITIES: No cyanosis, swelling, or edema. LABORATORY AND DIAGNOSTIC DATA: WBC 5.1, hemoglobin 12.2, hematocrit 38, and platelet count 275,000. ASSESSMENT AND RECOMMENDATIONS: 1. Liver masses, likely related to underlying hemangioma. Imaging has been reviewed CAT scan of the abdomen and pelvis. No other evidence of malignancy noted. Continue to closely monitor. Recheck CAT scan approximately in 6 to 12 months. 2. Leukopenia underlying benign congenital neutropenia. 3. Anemia of chronic disease, hemoglobin currently 11.9. 4. Gastroesophageal reflux disease, acid reflux. Continue the patient on H2 bernardo. Follow up on laboratories. 5. Tremors. She has been seen by Neurology Service. 6. Chest pain, atypical . Troponin is negative. The patient is seen by Cardiology. 7. Anxiety. I appreciate the consultation. Colin Shin M.D. DR: MICHELLE JOB#: [id number] CC:
--- NOTE | 2017-07-06 14:30 | Discharge Summary ---
Discharge Summary Hospital Course Date of Admission Jun 27, 2017 at 23:18 Date of Discharge Jul 05, 2017 at 12:56 Admitting Diagnosis CHEST PAIN HPI Fannie Haley is a 67 year old female who was admitted on Jun 27, 2017 at 23:18 for Chest Pain Hospital Course [id number] Discharge Discharge Disposition Patient was discharged to SNF/Subacute Facility(03) Discharge Diagnoses: Sunshine Garsia NP Jul 06, 2017 14:30
--- NOTE | 2017-07-07 05:15 | Discharge Summary 2 SIG ---
DATE OF ADMISSION: 06/27/2017 DATE OF DISCHARGE: 07/05/2017 CONSULTANTS: 1. Morales Guido M.D. 2. Denys Vargas M.D. 3. Alcides Sanford M.D. 4. Lloyd Galarza M.D. 5. Colin Shin M.D. BRIEF HOSPITAL COURSE: The patient is a 67-year-old female, who presented with chief complaint of chest pain and tremors. She is a resident of [facility] [place] and per staff, the patient began to have uncontrolled tremors of her arms and began to experience chest pain. Chest pain did not radiate to the jaw or shoulders. She has past medical history significant for chronic low back pain and unspecified and essential tremors. On evaluation at the ED, she was noted to have arm jerking with nonfocal neurologic exam. Blood work showed no leukocytosis. Hemoglobin and hematocrit stable. Electrolytes are stable. Initial troponin was negative. EKG was in normal sinus rhythm with no acute changes. Chest x-ray showed cardiomegaly with no consolidation, effusion or pneumothorax. She was admitted for evaluation of chest pain and tremors. She underwent cardiac evaluation. Electrocardiogram showed no ST to T-wave abnormalities. Echocardiogram showed ejection fraction of 65-70% with no evidence of pericardial effusion. Chest pain was reproducible on tenderness as there was tenderness to palpation. She had a rib x-ray done that was negative for fracture. However, sternum x-ray showed questionable fracture of the sternum. She was given aspirin and Flexeril. She underwent neurological evaluation. She is being followed by Dr. Cole, as outpatient, who started her on primidone, later Ativan, however, there was no improvement and continued to have tremors. She had significant gait abnormality and became nonambulatory. She was continued on her Sinemet, increased to one tablet t.i.d. Primidone was discontinued. She was given ropinirole 0.25 mg t.i.d. She had episodes of hypotension and was given small boluses. Antihypertensives were discontinued. She was given midodrine. She had a chest CT done that confirmed fracture deformity on the midsternal body with visualization of multiple soft tissue attenuation liver lesions. A repeat CT with contrast was done that showed no acute chest pathology, however, with right lobe liver loculated mass demonstrated. She had abdominal and pelvic CT done with contrast. Hepatic cysts were likely benign simple hemangioma. She was given PT and OT and was eventually discharged to a retirement. FINAL DIAGNOSES: 1. Atypical Parkinson syndrome, advanced. 2. Chest pain secondary to fracture in sternum. 3. Hypertension. 4. Tremors. 5. Liver mass with benign hemangioma. 6. Anemia of chronic disease. 7. Leukopenia. 8. Gastroesophageal reflux disease. DISPOSITION: The patient was discharged to [facility] [place]. DISCHARGE MEDICATIONS: Refer to medication list. Robin Chow M.D. I have been assigned to dictate discharge summary on this account and I was not involved in the patient's management. Sunshine Garsia N.P. DR: Perla JOB#: [id number] CC: DELFIN
== END 2017-07-05 12:56 | DRG 57 ==
LOC: EDBD 20:35 → EMR 20:45 → UNDOADMIN 23:18 → 2E 23:18 → EDBEDREQ 06-28 00:33 → 2E 06-29 11:30 → 3E 06-29 20:56 → 2E 06-29 21:36 → 2W 06-30 13:46 → 4E 07-02 17:52 → UNDODISIN 07-05 12:56 → 4E 07-06 12:56 → 2E 07-06 12:56
DX: G20 Parkinson's disease (principal); E46 Unspecified protein-calorie malnutrition; I95.9 Hypotension, unspecified; S22.20XA Unspecified fracture of sternum, initial encounter for closed fracture; D63.8 Anemia in other chronic diseases classified elsewhere; Z68.1 Body mass index [BMI] 19.9 or less, adult; R07.89 Other chest pain; G89.29 Other chronic pain; M54.5 Low back pain; I10 Essential (primary) hypertension; K21.9 Gastro-esophageal reflux disease without esophagitis; D18.09 Hemangioma of other sites; X58.XXXA Exposure to other specified factors, initial encounter; R26.89 Other abnormalities of gait and mobility; F41.9 Anxiety disorder, unspecified; J45.909 Unspecified asthma, uncomplicated
CPT/HCPCS: 36415; 71045; 71110; 71120; 71250; 71260; 74177; 80048; 80053; 80061; 81003; 82105; 82550; 83880; 84443; 84484; 85025; 85610; 85730; 86140; 87081; 93005; 93306; 93970; 94664; 99285